=== PATIENT | female | born 1985 | race American Indian/Alaskan Native ===

== ENCOUNTER 2016-11-07 09:29 | Emergency (ER) | payer MEDICAID ==
[2016-11-07 09:41] VITALS: BP 150/102
--- NOTE | 2016-11-07 09:41 | Emergency Department Report ---
ED ENT HPI - General Chief complaint: Sore Throat Stated complaint: FLU LIKE SYMPTOMS Time Seen by Provider: 11/07/16 09:35 Source: patient Mode of arrival: Ambulatory Limitations: No Limitations - History of Present Illness Initial comments: PT states she had a sore throat on Monday. PT states she took [place] for the sore throat. PT states she does not have sore throat now but she can not talk. PT states she has a hx of seasonal allergies and she takes Claritin and a Nasal spray but she is out. PT denies sick contacts. MD complaint: sore throat -: Gradual, days(s) Severity scale (0 -10): 0 Consistency: constant Associated Symptoms: fever (subjective ). denies: cough, toothache, pain with swallowing, sore throat - Related Data Home Medications Medication Instructions Recorded Confirmed Last Taken Diltiazem HCl [Diltiazem ER] 240 mg PO DAILY 01/07/13 11/13/14 11/13/14 Mycophenolate [Cellcept] 1,000 mg PO BID 01/07/13 11/13/14 11/13/14 Pyridostigmine [place] (Nf) 180 mg PO QHS 01/07/13 11/13/14 11/13/14 [Mestinon (Nf)] Pyridostigmine [Mestinon] 60 mg PO Q6HR 01/07/13 11/13/14 11/13/14 Prednisone 10 mg PO QDAY 05/27/14 11/13/14 11/13/14 Telmisartan [Micardis] 80 mg PO QDAY 05/27/14 11/13/14 11/13/14 Previous Rx's Medication Instructions Recorded Last Taken Type ALBUTEROL Inhaler [ProAir HFA 2 puff IH QID PRN #1 inhalation 03/13/16 Unknown Rx Inhaler] Fluticasone [Flonase] 2 spray NS QDAY #1 bottle 11/07/16 Unknown Rx Loratadine [Claritin] 10 mg PO DAILY #30 tablet 11/07/16 Unknown Rx predniSONE [Deltasone] 40 mg PO QDAY 3 Days 11/07/16 Unknown Rx Allergies Allergy/AdvReac Type Severity Reaction Status Date / Time No Known Allergies Allergy Verified 02/24/16 20:48 ED Dental HPI - General Stated complaint: FLU LIKE SYMPTOMS Time Seen by Provider: 11/07/16 09:35 - Related Data Home Medications Medication Instructions Recorded Confirmed Last Taken Diltiazem HCl [Diltiazem ER] 240 mg PO DAILY 01/07/13 11/13/14 11/13/14 Mycophenolate [Cellcept] 1,000 mg PO BID 01/07/13 11/13/14 11/13/14 Pyridostigmine [place] (Nf) 180 mg PO QHS 01/07/13 11/13/14 11/13/14 [Mestinon (Nf)] Pyridostigmine [Mestinon] 60 mg PO Q6HR 01/07/13 11/13/14 11/13/14 Prednisone 10 mg PO QDAY 05/27/14 11/13/14 11/13/14 Telmisartan [Micardis] 80 mg PO QDAY 05/27/14 11/13/14 11/13/14 Previous Rx's Medication Instructions Recorded Last Taken Type ALBUTEROL Inhaler [ProAir HFA 2 puff IH QID PRN #1 inhalation 03/13/16 Unknown Rx Inhaler] Fluticasone [Flonase] 2 spray NS QDAY #1 bottle 11/07/16 Unknown Rx Loratadine [Claritin] 10 mg PO DAILY #30 tablet 11/07/16 Unknown Rx predniSONE [Deltasone] 40 mg PO QDAY 3 Days 11/07/16 Unknown Rx Allergies Allergy/AdvReac Type Severity Reaction Status Date / Time No Known Allergies Allergy Verified 02/24/16 20:48 ED Review of Systems ROS: Stated complaint: FLU LIKE SYMPTOMS Other details as noted in HPI Comment: All other systems reviewed and negative Constitutional: chills, fever (subjective ) ENT: denies: throat pain (resolved) Respiratory: denies: cough, shortness of breath, SOB with exertion, SOB at rest Gastrointestinal: denies: abdominal pain Genitourinary: denies: abnormal menses ED Past Medical Hx - Past Medical History Hx Hypertension: Yes Hx Heart Attack/AMI: No Hx Congestive Heart Failure: No Hx Diabetes: No Hx Deep Vein Thrombosis: No Hx Pulmonary Embolism: No Hx GERD: No Hx Liver Disease: No Hx Renal Disease: No Hx Sickle Cell Disease: No Hx Arthritis: No Hx Seizures: No Hx Kidney Stones: No Hx Asthma: Yes Hx COPD: No Hx Tuberculosis: No Hx Dementia: No Hx HIV: No Additional medical history: myastheia gravis - Surgical History Hx Coronary Stent: No Hx Open Heart Surgery: No Hx Pacemaker: No Hx Internal Defibrillator: No Hx Cholecystectomy: No Hx Appendectomy: No Hx Breast Surgery: No Additional Surgical History: Thyroid gland removed via open heart - Social History Smoking Status: Never Smoker Substance Use Type: None - Medications Home Medications: Home Medications Medication Instructions Recorded Confirmed Last Taken Type Diltiazem HCl [Diltiazem ER] 240 mg PO DAILY 01/07/13 11/13/14 11/13/14 History Mycophenolate [Cellcept] 1,000 mg PO BID 01/07/13 11/13/14 11/13/14 History Pyridostigmine [place] (Nf) 180 mg PO QHS 01/07/13 11/13/14 11/13/14 History [Mestinon (Nf)] Pyridostigmine [Mestinon] 60 mg PO Q6HR 01/07/13 11/13/14 11/13/14 History Prednisone 10 mg PO QDAY 05/27/14 11/13/14 11/13/14 History Telmisartan [Micardis] 80 mg PO QDAY 05/27/14 11/13/14 11/13/14 History ALBUTEROL Inhaler [ProAir HFA 2 puff IH QID PRN #1 inhalation 03/13/16 Unknown Rx Inhaler] Fluticasone [Flonase] 2 spray NS QDAY #1 bottle 11/07/16 Unknown Rx Loratadine [Claritin] 10 mg PO DAILY #30 tablet 11/07/16 Unknown Rx predniSONE [Deltasone] 40 mg PO QDAY 3 Days 11/07/16 Unknown Rx ED Physical Exam - General Limitations: No Limitations General appearance: alert - Head Head exam: Present: atraumatic, normocephalic, normal inspection - Eye Eye exam: Present: normal appearance, PERRL, EOMI. Absent: conjunctival injection - ENT ENT exam: Present: normal orophraynx, mucous membranes moist, TM's normal bilaterally, normal external ear exam, other (turbinates enlarged and boggy and ertyhematous. Clear post nasal drainage) - Expanded ENT Exam Expanded Mouth exam: Present: normal external inspection, other (horse voice). Absent: drooling, trismus, muffled voice - Neck Neck exam: Present: normal inspection, full ROM. Absent: tenderness, meningismus, lymphadenopathy, thyromegaly - Respiratory Respiratory exam: Present: normal lung sounds bilaterally. Absent: respiratory distress, wheezes, rales, rhonchi - Cardiovascular Cardiovascular Exam: Present: regular rate, normal rhythm, normal heart sounds - GI/Abdominal GI/Abdominal exam: Present: soft. Absent: tenderness - Extremities Exam Extremities exam: Present: normal inspection, full ROM - Back Exam Back exam: Present: normal inspection, full ROM. Absent: tenderness, CVA tenderness (R), CVA tenderness (L) - Neurological Exam Neurological exam: Present: alert, oriented X3, normal gait - Psychiatric Psychiatric exam: Present: normal affect, normal mood - Skin Skin exam: Present: warm, dry, intact, normal color ED Course Vital Signs 11/07/16 09:36 Temperature 98.4 F Pulse Rate 104 H Respiratory 20 Rate Blood Pressure 150/102 O2 Sat by Pulse 100 Oximetry - Reevaluation(s) Reevaluation #1: 11/07/16 09:43 PT aware of plan of care. PT has no questions at this time. - Pulse Oximetry Interpretation Digit-Finger Initial Pulse Oximetry Readin Actions Taken: none ED Medical Decision Making - Differential Diagnosis viral uri, laryngitis Critical Care Time: No Critical care attestation.: If time is entered above; I have spent that time in minutes in the direct care of this critically ill patient, excluding procedure time. ED Disposition Clinical Impression: Laryngitis Allergic rhinitis Qualifiers: Chronicity: acute Allergic rhinitis trigger: unspecified Allergic rhinitis seasonality: unspecified seasonality Qualified Code(s): J30.9 - Allergic rhinitis, unspecified Disposition: DC-01 TO HOME OR SELFCARE Is pt being admited?: No Does the pt Need Aspirin: No Condition: Stable Instructions: Laryngitis (ED), Allergies (ED) Additional Instructions: Recheck BP at follow up Take the Claritin at night, it might make you drowsy Prescriptions: Fluticasone [Flonase] 2 spray NS QDAY #1 bottle Loratadine [Claritin] 10 mg PO DAILY #30 tablet predniSONE [Deltasone] 40 mg PO QDAY 3 Days Referrals: MARILIA SCHWARTZ MD [Staff Physician] - 3-[address] [facility] [Outside] - 3-5 Days Time of Disposition: 09:54
== END 2016-11-07 10:17 | disposition home or self-care (01) ==
LOC: ED 09:29
DX: J04.0 Acute laryngitis (principal); J30.9 Allergic rhinitis, unspecified; I10 Essential (primary) hypertension; J45.909 Unspecified asthma, uncomplicated
CPT/HCPCS: 99282

== ENCOUNTER 2018-11-01 02:04 | Emergency (ER) | payer MEDICAID ==
[2018-11-01] MEDS ORDERED: ATIVAN ONE (02:32)
[2018-11-01] MEDS ORDERED: ATIVAN IV ONE (02:33)
--- NOTE | 2018-11-01 03:24 | Emergency Department Report ---
<MELY ESPINAL - Last Filed: 11/01/18 10:37> ED Altered Mental Status HPI - General Chief Complaint: Altered Mental Status Stated Complaint: DIFFICULTY IN BREATHING Time Seen by Provider: 11/01/18 02:21 - Related Data Home Medications Medication Instructions Recorded Confirmed Last Taken Diltiazem HCl [Diltiazem 24Hr ER] 240 mg PO DAILY 01/07/13 11/13/14 11/13/14 Mycophenolate [Cellcept] 1,000 mg PO BID 01/07/13 11/13/14 11/13/14 Pyridostigmine [place] (Nf) 180 mg PO QHS 01/07/13 11/13/14 11/13/14 [Mestinon (Nf)] Pyridostigmine [Mestinon] 60 mg PO Q6HR 01/07/13 11/13/14 11/13/14 Telmisartan [Micardis] 80 mg PO QDAY 05/27/14 11/13/14 11/13/14 predniSONE [Prednisone] 10 mg PO QDAY 05/27/14 11/13/14 11/13/14 Previous Rx's Medication Instructions Recorded Last Taken Type ALBUTEROL Inhaler (OR & NICU) 2 puff IH QID PRN #1 inhalation 03/13/16 Unknown Rx [ProAir HFA Inhaler] Fluticasone [Flonase] 2 spray NS QDAY #1 bottle 11/07/16 Unknown Rx Loratadine [Claritin] 10 mg PO DAILY #30 tablet 11/07/16 Unknown Rx predniSONE [Deltasone] 40 mg PO QDAY 3 Days tab 11/07/16 Unknown Rx Erythromycin [Erythromycin Ophth 1 applic OS QID #7 day 12/30/17 Unknown Rx Oint] Allergies Allergy/AdvReac Type Severity Reaction Status Date / Time No Known Allergies Allergy Verified 02/24/16 20:48 ED Past Medical Hx - Medications Home Medications: Home Medications Medication Instructions Recorded Confirmed Last Taken Type Diltiazem HCl [Diltiazem 24Hr ER] 240 mg PO DAILY 01/07/13 11/13/14 11/13/14 History Mycophenolate [Cellcept] 1,000 mg PO BID 01/07/13 11/13/14 11/13/14 History Pyridostigmine [place] (Nf) 180 mg PO QHS 0911/13/14 11/13/14 History [Mestinon (Nf)] Pyridostigmine [Mestinon] 60 mg PO Q6HR 01/07/13 11/13/14 11/13/14 History Telmisartan [Micardis] 80 mg PO QDAY 05/27/14 11/13/14 11/13/14 History predniSONE [Prednisone] 10 mg PO QDAY 05/27/14 11/13/14 11/13/14 History ALBUTEROL Inhaler (OR & NICU) 2 puff IH QID PRN #1 inhalation 03/13/16 Unknown Rx [ProAir HFA Inhaler] Fluticasone [Flonase] 2 spray NS QDAY #1 bottle 11/07/16 Unknown Rx Loratadine [Claritin] 10 mg PO DAILY #30 tablet 11/07/16 Unknown Rx predniSONE [Deltasone] 40 mg PO QDAY 3 Days tab 11/07/16 Unknown Rx Erythromycin [Erythromycin Ophth 1 applic OS QID #7 day 12/30/17 Unknown Rx Oint] - Lab Data Result diagrams: 11/01/18 02:56 11/01/18 02:56 - Medical Decision Making Discussed patient with Dr. Yancey at [facility] and the patient was accepted for transfer Up dated family on plan of care ED Disposition Clinical Impression: Seizure, Myasthenia gravis, Respiratory failure Disposition: [id number] Condition: [facility] - 3-5 Days <MONICA ALLRED - Last Filed: 11/01/18 22:27> ED Altered Mental Status HPI - General Source: family Mode of arrival: Ambulatory Limitations: Altered Mental Status - History of Present Illness Initial Comments: 33-year-old female with history of myasthenia gravis, HTN presents to ED with altered mental status. states patient had an MRI of the brain done earlier today at [facility]. states this was to evaluate some eye abnormalities that the patient has been having. states she was unable to tolerate the MRI, so required sedation for it. says patient seemed fine following the MRI. States later in the evening patient began to complain of feeling generally weak, unable to move, so decided to bring patient to the ER. states he had to assist patient in sitting up while she was in the car, he states she also reported that she felt somewhat short of breath. Upon arrival in the ER, patient became altered and somewhat unresponsive. Patient was clammy, diaphoretic, and had urinary incontinence. denies any obvious seizure-like activity/ tonic-clinic shaking. Denies history of seizures. Initially upon entering the room, patient seemed to have a blank stare, and was breathing heavily, not responding to any questions. Patient then began speaking and continuously saying prayers over and over again, and telling her that she left him, apologizing for not being a better mother. At this time patient was anxious and moving all extremities despite efforts in trying to calm her down. Patient not following commands or answering any questions. MD Complaint: altered mental status, weakness -: This evening Severity: severe Consistency of Symptoms: constant Context: unknown Associated Symptoms: shortness of breath, weakness ED Review of Systems ROS: Stated complaint: DIFFICULTY IN BREATHING Other details as noted in HPI Comment: Unobtainable due to pts medical conditions Constitutional: weakness Respiratory: shortness of breath Cardiovascular: denies: chest pain ED Past Medical Hx - Past Medical History Hx Hypertension: Yes Hx Heart Attack/AMI: No Hx Congestive Heart Failure: No Hx Diabetes: No Hx Deep Vein Thrombosis: No Hx Pulmonary Embolism: No Hx GERD: No Hx Liver Disease: No Hx Renal Disease: No Hx Sickle Cell Disease: No Hx Arthritis: No Hx Seizures: No Hx Kidney Stones: No Hx Asthma: Yes Hx COPD: No Hx Tuberculosis: No Hx Dementia: No Hx HIV: No Additional medical history: myastheia gravis - Surgical History Hx Coronary Stent: No Hx Open Heart Surgery: No Hx Pacemaker: No Hx Internal Defibrillator: No Hx Cholecystectomy: No Hx Appendectomy: No Hx Breast Surgery: No Additional Surgical History: Thyroid gland removed via open heart - Social History Smoking Status: Never Smoker Substance Use Type: None ED Physical Exam - General Limitations: Altered Mental Status General appearance: alert, anxious, obese - Head Head exam: Present: atraumatic, normocephalic - Eye Eye exam: Present: normal appearance, PERRL, EOMI - ENT ENT exam: Present: mucous membranes moist - Neck Neck exam: Present: normal inspection - Respiratory Respiratory exam: Present: normal lung sounds bilaterally, other (tachypneic) - Cardiovascular Cardiovascular Exam: Present: normal rhythm, tachycardia - GI/Abdominal GI/Abdominal exam: Present: soft. Absent: distended, tenderness - Extremities Exam Extremities exam: Present: normal inspection - Neurological Exam Neurological exam: Present: alert, altered, other (moving all 4 extremities; not following commands; speech is clear) - Psychiatric Psychiatric exam: Present: agitated, anxious - Skin Skin exam: Present: warm, intact, normal color, diaphoretic. Absent: rash ED Course Vital Signs 11/01/18 11/01/18 11/01/18 02:16 02:33 02:47 Temperature 98.4 F Pulse Rate 124 H 160 H Respiratory 35 H 38 H Rate Blood Pressure O2 Sat by Pulse 34 L 84 98 Oximetry 11/01/18 11/01/18 11/01/18 03:00 04:00 04:14 Temperature Pulse Rate 116 H 115 H 113 H Respiratory 23 24 22 Rate Blood Pressure 209/114 209/114 O2 Sat by Pulse 100 100 100 Oximetry 11/01/18 11/01/18 11/01/18 04:56 05:00 05:06 Temperature Pulse Rate 118 H 118 H Respiratory 22 19 8 L Rate Blood Pressure 209/114 209/114 209/114 O2 Sat by Pulse 90 91 90 Oximetry 11/01/18 11/01/18 11/01/18 05:10 05:16 05:20 Temperature Pulse Rate 122 H 110 H Respiratory 19 20 24 Rate Blood Pressure 209/114 209/114 159/115 O2 Sat by Pulse 95 96 97 Oximetry 11/01/18 11/01/18 11/01/18 05:26 05:30 05:36 Temperature Pulse Rate 108 H 114 H Respiratory 26 H Rate Blood Pressure 159/115 159/115 165/105 O2 Sat by Pulse 98 100 97 Oximetry 11/01/18 11/01/18 11/01/18 05:42 05:45 05:51 Temperature Pulse Rate 112 H 108 H 129 H Respiratory Rate Blood Pressure 209/114 166/105 166/105 O2 Sat by Pulse 98 91 98 Oximetry 11/01/18 11/01/18 11/01/18 05:55 06:00 06:05 Temperature Pulse Rate 130 H 121 H 118 H Respiratory Rate Blood Pressure 166/105 163/123 165/105 O2 Sat by Pulse 92 90 87 Oximetry 07/11/19 07/11/19 07/11/19 06:11 06:15 06:21 Temperature Pulse Rate 118 H 130 H 127 H Respiratory Rate Blood Pressure 165/105 174/129 174/129 O2 Sat by Pulse 86 91 96 Oximetry 11/01/18 11/01/18 11/01/18 06:25 06:31 06:35 Temperature Pulse Rate 131 H 122 H 132 H Respiratory Rate Blood Pressure 174/129 182/125 163/123 O2 Sat by Pulse 96 97 95 Oximetry 11/01/18 11/01/18 11/01/18 06:41 06:45 06:51 Temperature Pulse Rate 124 H 118 H 109 H Respiratory Rate Blood Pressure 163/123 178/113 178/113 O2 Sat by Pulse 98 100 99 Oximetry 11/01/18 11/01/18 11/01/18 06:55 07:01 07:05 Temperature Pulse Rate 113 H 116 H 117 H Respiratory Rate Blood Pressure 178/113 167/105 182/125 O2 Sat by Pulse 100 100 99 Oximetry 11/01/18 11/01/18 11/01/18 07:11 07:15 07:21 Temperature Pulse Rate 114 H 124 H 166 H Respiratory Rate Blood Pressure 182/125 176/131 176/131 O2 Sat by Pulse 100 100 97 Oximetry 11/01/18 11/01/18 11/01/18 07:25 07:31 07:35 Temperature Pulse Rate 162 H 168 H 162 H Respiratory Rate Blood Pressure 176/131 176/131 176/131 O2 Sat by Pulse 92 98 97 Oximetry 11/01/18 11/01/18 11/01/18 07:41 07:45 07:51 Temperature Pulse Rate 162 H 176 H 181 H Respiratory Rate Blood Pressure 176/131 117/88 117/88 O2 Sat by Pulse 100 99 98 Oximetry 11/01/18 11/01/18 11/01/18 07:55 08:01 08:05 Temperature Pulse Rate 178 H 163 H 152 H Respiratory Rate Blood Pressure 117/88 195/142 117/88 O2 Sat by Pulse 98 97 98 Oximetry 11/01/18 11/01/18 11/01/18 08:11 08:15 08:21 Temperature Pulse Rate 177 H 177 H 176 H Respiratory Rate Blood Pressure 185/134 185/134 229/160 O2 Sat by Pulse 92 93 92 Oximetry 11/01/18 11/01/18 11/01/18 08:25 08:31 08:35 Temperature Pulse Rate 176 H 171 H 163 H Respiratory Rate Blood Pressure 229/160 214/149 185/134 O2 Sat by Pulse 89 91 Oximetry 11/01/18 11/01/18 11/01/18 08:41 08:45 08:51 Temperature Pulse Rate 162 H 160 H 160 H Respiratory Rate Blood Pressure 231/162 227/157 224/155 O2 Sat by Pulse 89 88 Oximetry 11/01/18 11/01/18 11/01/18 08:55 09:01 09:05 Temperature Pulse Rate 160 H 162 H 161 H Respiratory Rate Blood Pressure 224/156 218/154 218/149 O2 Sat by Pulse 88 Oximetry 11/01/18 11/01/18 11/01/18 09:10 09:15 09:20 Temperature Pulse Rate 162 H 161 H 157 H Respiratory Rate Blood Pressure 218/149 226/155 218/149 O2 Sat by Pulse 91 90 93 Oximetry 11/01/18 11/01/18 11/01/18 09:25 09:31 09:35 Temperature Pulse Rate 160 H 161 H 168 H Respiratory Rate Blood Pressure 210/146 210/142 210/142 O2 Sat by Pulse 90 89 Oximetry 11/01/18 11/01/18 11/01/18 09:41 09:45 09:51 Temperature Pulse Rate 164 H 163 H 164 H Respiratory Rate Blood Pressure 180/133 180/133 193/136 O2 Sat by Pulse 90 94 95 Oximetry 11/01/18 11/01/18 11/01/18 09:55 10:01 10:05 Temperature Pulse Rate 165 H 167 H 167 H Respiratory Rate Blood Pressure 193/136 199/136 199/136 O2 Sat by Pulse 95 93 92 Oximetry 11/01/18 11/01/18 11/01/18 10:11 10:15 10:20 Temperature Pulse Rate 167 H 167 H 167 H Respiratory Rate Blood Pressure 187/121 187/121 181/115 O2 Sat by Pulse 93 93 94 Oximetry 11/01/18 11/01/18 11/01/18 10:25 10:31 10:35 Temperature Pulse Rate 169 H 170 H 169 H Respiratory Rate Blood Pressure 177/121 180/107 180/107 O2 Sat by Pulse 94 94 94 Oximetry 11/01/18 11/01/18 11/01/18 10:41 10:45 10:51 Temperature Pulse Rate 171 H 168 H 167 H Respiratory Rate Blood Pressure 178/116 178/116 163/104 O2 Sat by Pulse 97 96 97 Oximetry 11/01/18 11/01/18 11/01/18 10:55 11:01 11:05 Temperature Pulse Rate 165 H 158 H 166 H Respiratory Rate Blood Pressure 163/104 181/115 185/123 O2 Sat by Pulse 97 95 96 Oximetry 11/01/18 11/01/18 11/01/18 11:11 11:15 11:21 Temperature Pulse Rate 165 H 156 H 154 H Respiratory Rate Blood Pressure 164/110 164/110 164/110 O2 Sat by Pulse 95 94 96 Oximetry 11/01/18 11/01/18 11/01/18 11:25 11:31 11:35 Temperature Pulse Rate 152 H 152 H 149 H Respiratory Rate Blood Pressure 126/53 126/55 126/55 O2 Sat by Pulse 94 98 96 Oximetry 11/01/18 11/01/18 11/01/18 11:41 11:45 11:51 Temperature Pulse Rate 149 H 149 H 149 H Respiratory Rate Blood Pressure 91/60 104/53 99/39 O2 Sat by Pulse 81 L 95 97 Oximetry 11/01/18 11/01/18 11/01/18 11:55 12:00 12:01 Temperature Pulse Rate 146 H 146 H 147 H Respiratory Rate Blood Pressure 115/46 121/86 95/36 O2 Sat by Pulse 97 96 Oximetry 11/01/18 11/01/18 11/01/18 12:05 12:11 12:15 Temperature Pulse Rate 152 H 153 H 159 H Respiratory Rate Blood Pressure 121/86 178/125 178/125 O2 Sat by Pulse 97 96 96 Oximetry 11/01/18 11/01/18 11/01/18 12:21 12:25 12:31 Temperature Pulse Rate 160 H 160 H 161 H Respiratory Rate Blood Pressure 178/125 194/138 191/150 O2 Sat by Pulse 95 96 96 Oximetry 11/01/18 11/01/18 11/01/18 12:35 12:41 12:45 Temperature Pulse Rate 157 H 155 H 163 H Respiratory Rate Blood Pressure 191/150 191/150 191/150 O2 Sat by Pulse 95 95 96 Oximetry 11/01/18 11/01/18 11/01/18 12:51 12:55 13:00 Temperature Pulse Rate 169 H 160 H 157 H Respiratory Rate Blood Pressure 185/123 185/123 128/84 O2 Sat by Pulse 96 96 96 Oximetry 11/01/18 11/01/18 11/01/18 13:05 13:11 13:15 Temperature Pulse Rate 153 H 150 H 147 H Respiratory Rate Blood Pressure 114/60 95/36 72/33 O2 Sat by Pulse 96 96 96 Oximetry 11/01/18 11/01/18 11/01/18 13:20 13:25 13:30 Temperature Pulse Rate 146 H 145 H 146 H Respiratory Rate Blood Pressure 65/35 67/31 79/33 O2 Sat by Pulse 95 96 96 Oximetry 11/01/18 11/01/18 11/01/18 13:35 13:40 13:45 Temperature Pulse Rate 142 H 138 H 135 H Respiratory Rate Blood Pressure 91/35 81/36 80/31 O2 Sat by Pulse 97 98 99 Oximetry 11/01/18 11/01/18 11/01/18 13:50 13:55 14:00 Temperature Pulse Rate 136 H 132 H 130 H Respiratory Rate Blood Pressure 81/49 84/49 82/58 O2 Sat by Pulse 100 100 100 Oximetry 11/01/18 11/01/18 11/01/18 14:05 14:10 14:15 Temperature Pulse Rate 132 H 136 H 138 H Respiratory Rate Blood Pressure 101/68 108/53 108/53 O2 Sat by Pulse 100 98 100 Oximetry 11/01/18 11/01/18 11/01/18 14:21 14:25 14:31 Temperature Pulse Rate 146 H 148 H 148 H Respiratory Rate Blood Pressure 112/87 162/114 162/114 O2 Sat by Pulse 100 98 98 Oximetry 11/01/18 11/01/18 11/01/18 14:35 14:41 14:45 Temperature Pulse Rate 152 H 150 H 147 H Respiratory Rate Blood Pressure 186/117 175/112 177/108 O2 Sat by Pulse 98 98 98 Oximetry 11/01/18 11/01/18 11/01/18 14:51 14:55 15:01 Temperature Pulse Rate 149 H 146 H 143 H Respiratory Rate Blood Pressure 169/112 169/112 148/91 O2 Sat by Pulse 98 97 98 Oximetry 11/01/18 11/01/18 11/01/18 15:05 15:11 15:15 Temperature Pulse Rate 145 H 144 H 143 H Respiratory Rate Blood Pressure 164/104 141/98 145/100 O2 Sat by Pulse 97 97 97 Oximetry 11/01/18 11/01/18 11/01/18 15:21 15:25 15:31 Temperature Pulse Rate 144 H 146 H 147 H Respiratory Rate Blood Pressure 151/102 158/96 162/98 O2 Sat by Pulse 99 100 98 Oximetry 11/01/18 11/01/18 11/01/18 15:35 15:41 15:45 Temperature Pulse Rate 147 H 149 H 149 H Respiratory Rate Blood Pressure 168/107 173/105 166/109 O2 Sat by Pulse 98 98 99 Oximetry 11/01/18 11/01/18 11/01/18 15:50 15:55 16:00 Temperature Pulse Rate 150 H 149 H 151 H Respiratory Rate Blood Pressure 158/118 165/110 165/112 O2 Sat by Pulse 99 100 98 Oximetry 11/01/18 11/01/18 11/01/18 16:05 16:11 16:15 Temperature Pulse Rate 152 H 156 H 158 H Respiratory Rate Blood Pressure 165/112 140/121 140/121 O2 Sat by Pulse 98 97 98 Oximetry 11/01/18 11/01/18 11/01/18 16:20 16:25 16:31 Temperature Pulse Rate 157 H 156 H 152 H Respiratory Rate Blood Pressure 155/134 173/131 192/117 O2 Sat by Pulse 99 99 98 Oximetry 11/01/18 11/01/18 11/01/18 16:35 16:41 16:45 Temperature Pulse Rate 156 H 159 H 158 H Respiratory Rate Blood Pressure 192/117 184/124 184/124 O2 Sat by Pulse 98 99 99 Oximetry 11/01/18 11/01/18 11/01/18 16:51 16:55 17:01 Temperature Pulse Rate 161 H 157 H 158 H Respiratory Rate Blood Pressure 184/130 184/130 189/124 O2 Sat by Pulse 99 98 98 Oximetry 11/01/18 11/01/18 11/01/18 17:05 17:11 17:15 Temperature Pulse Rate 157 H 162 H 157 H Respiratory Rate Blood Pressure 129/104 129/104 184/126 O2 Sat by Pulse 98 98 99 Oximetry 11/01/18 11/01/18 11/01/18 17:21 17:25 17:31 Temperature Pulse Rate 160 H 158 H 159 H Respiratory Rate Blood Pressure 190/124 190/124 152/131 O2 Sat by Pulse 100 99 98 Oximetry 11/01/18 11/01/18 11/01/18 17:35 17:41 17:45 Temperature Pulse Rate 159 H 160 H 159 H Respiratory Rate Blood Pressure 152/131 188/120 188/120 O2 Sat by Pulse 99 99 99 Oximetry 11/01/18 11/01/18 11/01/18 17:51 17:55 18:01 Temperature Pulse Rate 158 H 158 H 160 H Respiratory Rate Blood Pressure 146/132 180/106 152/104 O2 Sat by Pulse 99 99 100 Oximetry 11/01/18 11/01/18 11/01/18 18:05 18:11 18:15 Temperature Pulse Rate 162 H 160 H 157 H Respiratory Rate Blood Pressure 152/104 175/119 175/119 O2 Sat by Pulse 100 99 99 Oximetry 11/01/18 11/01/18 11/01/18 18:21 18:25 18:31 Temperature Pulse Rate 153 H 151 H 150 H Respiratory Rate Blood Pressure 188/116 188/116 196/126 O2 Sat by Pulse 99 97 98 Oximetry 11/01/18 11/01/18 11/01/18 18:35 18:41 18:45 Temperature Pulse Rate 150 H 154 H 157 H Respiratory Rate Blood Pressure 196/126 188/131 175/109 O2 Sat by Pulse 97 98 97 Oximetry 11/01/18 11/01/18 11/01/18 18:51 18:55 19:01 Temperature Pulse Rate 154 H 156 H 155 H Respiratory Rate Blood Pressure 170/107 170/107 142/98 O2 Sat by Pulse 97 96 96 Oximetry 11/01/18 11/01/18 11/01/18 19:05 19:11 19:15 Temperature Pulse Rate 154 H 154 H 154 H Respiratory Rate Blood Pressure 142/98 159/87 175/109 O2 Sat by Pulse 96 96 97 Oximetry 11/01/18 11/01/18 11/01/18 19:21 19:25 19:31 Temperature Pulse Rate 155 H 156 H 157 H Respiratory Rate Blood Pressure 138/95 138/95 150/76 O2 Sat by Pulse 95 95 97 Oximetry 11/01/18 11/01/18 11/01/18 19:35 19:41 19:45 Temperature Pulse Rate 155 H 155 H 156 H Respiratory Rate Blood Pressure 150/76 164/136 138/95 O2 Sat by Pulse 96 97 99 Oximetry 11/01/18 11/01/18 11/01/18 19:51 19:55 20:01 Temperature Pulse Rate 159 H 159 H 156 H Respiratory Rate Blood Pressure 154/99 154/99 145/83 O2 Sat by Pulse 98 97 98 Oximetry 11/01/18 11/01/18 11/01/18 20:05 20:11 20:15 Temperature Pulse Rate 156 H 157 H 156 H Respiratory Rate Blood Pressure 145/83 161/93 161/93 O2 Sat by Pulse 97 97 98 Oximetry 11/01/18 11/01/18 11/01/18 20:20 20:21 20:25 Temperature Pulse Rate 157 H 158 H 160 H Respiratory Rate Blood Pressure 161/93 161/98 169/91 O2 Sat by Pulse 98 99 97 Oximetry 11/01/18 11/01/18 11/01/18 20:31 20:35 20:41 Temperature Pulse Rate 159 H 161 H 160 H Respiratory Rate Blood Pressure 169/91 155/94 153/95 O2 Sat by Pulse 98 98 98 Oximetry 11/01/18 11/01/18 11/01/18 20:45 20:51 20:55 Temperature Pulse Rate 159 H 158 H 159 H Respiratory Rate Blood Pressure 153/95 160/90 160/90 O2 Sat by Pulse 96 97 99 Oximetry 11/01/18 11/01/18 11/01/18 21:00 21:05 21:11 Temperature Pulse Rate 159 H 159 H 163 H Respiratory Rate Blood Pressure 147/86 143/105 157/89 O2 Sat by Pulse 99 99 99 Oximetry 11/01/18 21:15 Temperature Pulse Rate 160 H Respiratory Rate Blood Pressure 147/86 O2 Sat by Pulse 99 Oximetry - Reevaluation(s) Reevaluation #1: 11/01/18 04:18 Pt much improved from initial presentation. She is answering questions appropriately. Currently A&O x 3. Strength 4/5 in all 4 extremities. Pt does state that she feels as if she is having some neck weakness, and generalized weakness. States this does feel like previous MG exacerbations and has received IVIG in the past. Neurologist at [facility] is Dr Kirby. Reevaluation #2: 11/01/18 06:43 Pt taken off of BiPAP. Repeat ABG on room air shows no CO2 retention. Pt asleep, but easily arousable and answers questions appropriately. states pt currently at her baseline. Pt states she feels ok without BiPAP. Pt has been tachycardic in the 110s. Takes diltiazem. Pt reports that her heart rate is usually elevated. Will contact [facility] again with current ABG results on room air. pH 7.43 pCO2 35 pO2 64 O2 sats 93 Reevaluation #3: 11/01/18 07:45 Spoke w/ [facility] neurologist, Dr Jeff (due to change of shift Dr Coffey has left). Dr Jeff requested NIV and FVC values. After getting off of the phone with her, I was speaking to the respiratory therapist about this patient. Pt's nurse came to me and stated that pt was anxious again and complaining of having trouble breathing. I evaluated pt, she told me that she has been intubated before due to MG. So, decision was made to intubate. - Consultations Consultation #1: 11/01/18 04:16 Spoke w/ teleneurologist, Dr Chadwick. States pt's presentation could possibly be MG exacerbation. If pt has received IVIG before, may need again. Recommends contacting [facility] since that is where her neurologists are located. Consultation #2: 11/01/18 05:[address] Coffey, [facility] neurologist. Does not believe that this is an exacerbation of MG, states sounds more like a seizure. Does not recommend any antiepileptics at this time. Will accept pt, but wants to obtain repeat ABG w/ pt off of BiPAP. - Intubation Time Out Performed: Yes Sedative: Etomidate Mg Given: 20 Paralytic: Rocuronium Mg Given: 50 Laryngoscope: [place] Size: 4 ET Tube Size: 7.5 Tube Secured Depth (cm): 24 Tube Secured Location: teeth Tube Placement Confirmation: visualized tube passing t, equal breath sounds bilat, no breath sounds over epi, confirmation by capnometr Patient Tolerated Procedure: well Intubation Complications: none - Lab Data Result diagrams: 11/01/18 02:56 11/01/18 02:56 Lab Results 11/01/18 11/01/18 11/01/18 Range/Units 02:56 02:56 02:56 WBC 10.4 (4.5-11.0) K/mm3 RBC 4.89 (3.65-5.03) M/mm3 Hgb 12.9 (10.1-14.3) gm/dl Hct 39.9 (30.3-42.9) % MCV 82 (79-97) fl MCH 27 L (28-32) pg MCHC 32 (30-34) % RDW 14.9 (13.2-15.2) % Plt Count 297 (140-440) K/mm3 Add Manual Diff Complete Total Counted 100 Seg Neuts % (Manual) 93.0 H (40.0-70.0) % Band Neutrophils % 0 % Lymphocytes % (Manual) 6.0 L (13.4-35.0) % Reactive Lymphs % (Man) 0 % Monocytes % (Manual) 1.0 (0.0-7.3) % Eosinophils % (Manual) 0 (0.0-4.3) % Basophils % (Manual) 0 (0.0-1.8) % Metamyelocytes % 0 % Myelocytes % 0 % Promyelocytes % 0 % Blast Cells % 0 % Nucleated RBC % Not Reportable Seg Neutrophils # Man 9.7 H (1.8-7.7) K/mm3 Band Neutrophils # 0.0 K/mm3 Lymphocytes # (Manual) 0.6 L (1.2-5.4) K/mm3 Abs React Lymphs (Man) 0.0 K/mm3 Monocytes # (Manual) 0.1 (0.0-0.8) K/mm3 Eosinophils # (Manual) 0.0 (0.0-0.4) K/mm3 Basophils # (Manual) 0.0 (0.0-0.1) K/mm3 Metamyelocytes # 0.0 K/mm3 Myelocytes # 0.0 K/mm3 Promyelocytes # 0.0 K/mm3 Blast Cells # 0.0 K/mm3 WBC Morphology Not Reportable Hypersegmented Neuts Not Reportable Hyposegmented Neuts Not Reportable Hypogranular Neuts Not Reportable Smudge Cells Not Reportable Toxic Granulation Not Reportable Toxic Vacuolation Not Reportable Dohle Bodies Not Reportable Pelger-Huet Anomaly Not Reportable Brandyn Rods Not Reportable Platelet Estimate Consistent w auto Clumped Platelets Few Plt Clumps, EDTA Not Reportable Large Platelets Not Reportable Giant Platelets Not Reportable Platelet Satelliting Not Reportable Plt Morphology Comment Not Reportable RBC Morphology Normal Dimorphic RBCs Not Reportable Polychromasia Not Reportable Hypochromasia Not Reportable Poikilocytosis Not Reportable Anisocytosis Not Reportable Microcytosis Not Reportable Macrocytosis Not Reportable Spherocytes Not Reportable Pappenheimer Bodies Not Reportable Sickle Cells Not Reportable Target Cells Not Reportable Tear Drop Cells Not Reportable Ovalocytes Not Reportable Helmet Cells Not Reportable Hilton-[place] Bodies Not Reportable Frankewing Rings Not Reportable Rolfe Cells Not Reportable Bite Cells Not Reportable Crenated Cell Not Reportable Elliptocytes Not Reportable Acanthocytes (Spur) Not Reportable Rouleaux Not Reportable Hemoglobin C Crystals Not Reportable Schistocytes Not Reportable Malaria parasites Not Reportable Kit Bodies Not Reportable Hem Pathologist Commnt No PT 13.1 (12.2-14.9) Sec. INR 1.02 (0.87-1.13) APTT TNR D-Dimer (0-234) ng/mlDDU POC ABG pH (7.35-7.45) POC ABG pCO2 (35-45) POC ABG pO2 (80-105) POC ABG HCO3 (22-26 mml/L) POC ABG Total CO2 (23-27mmol/L) POC ABG O2 Sat POC ABG Base Excess ((-2) - (+3)mmol/L) FiO2 % Sodium (137-145) mmol/L Potassium (3.6-5.0) mmol/L Chloride (98-107) mmol/L Carbon Dioxide (22-30) mmol/L Anion Gap mmol/L BUN (7-17) mg/dL Creatinine (0.7-1.2) mg/dL Estimated GFR ml/min BUN/Creatinine Ratio % Glucose (65-100) mg/dL Calcium (8.4-10.2) mg/dL Total Bilirubin (0.1-1.2) mg/dL AST (5-40) units/L ALT (7-56) units/L Alkaline Phosphatase (35-129) units/L Troponin T < 0.010 (0.00-0.029) ng/mL NT-Pro-B Natriuret Pep (0-450) pg/mL Total Protein (6.3-8.2) g/dL Albumin (3.9-5) g/dL Albumin/Globulin Ratio % HCG, Qual (Negative) Urine Color (Yellow) Urine Turbidity (Clear) Urine pH (5.0-7.0) Ur Specific [place] (1.003-1.030) Urine Protein (Negative) mg/dL Urine Glucose (UA) (Negative) mg/dL Urine Ketones (Negative) mg/dL Urine Blood (Negative) Urine Nitrite (Negative) Urine Bilirubin (Negative) Urine Urobilinogen (<2.0) mg/dL Ur Leukocyte Esterase (Negative) Urine WBC (Auto) (0.0-6.0) /HPF Urine RBC (Auto) (0.0-6.0) /HPF U Epithel Cells (Auto) (0-13.0) /HPF Salicylates (2.8-20.0) mg/dL Urine Opiates Screen Urine Methadone Screen Acetaminophen (10.0-30.0) ug/mL Ur Barbiturates Screen Ur Phencyclidine Scrn Ur Amphetamines Screen U Benzodiazepines Scrn Urine Cocaine Screen U Marijuana (THC) Screen Drugs of Abuse Note Plasma/Serum Alcohol (0-0.07) % 11/01/18 11/01/18 11/01/18 Range/Units 02:56 02:56 02:56 WBC (4.5-11.0) K/mm3 RBC (3.65-5.03) M/mm3 Hgb (10.1-14.3) gm/dl Hct (30.3-42.9) % MCV (79-97) fl MCH (28-32) pg MCHC (30-34) % RDW (13.2-15.2) % Plt Count (140-440) K/mm3 Add Manual Diff Total Counted Seg Neuts % (Manual) (40.0-70.0) % Band Neutrophils % % Lymphocytes % (Manual) (13.4-35.0) % Reactive Lymphs % (Man) % Monocytes % (Manual) (0.0-7.3) % Eosinophils % (Manual) (0.0-4.3) % Basophils % (Manual) (0.0-1.8) % Metamyelocytes % % Myelocytes % % Promyelocytes % % Blast Cells % % Nucleated RBC % Seg Neutrophils # Man (1.8-7.7) K/mm3 Band Neutrophils # K/mm3 Lymphocytes # (Manual) (1.2-5.4) K/mm3 Abs React Lymphs (Man) K/mm3 Monocytes # (Manual) (0.0-0.8) K/mm3 Eosinophils # (Manual) (0.0-0.4) K/mm3 Basophils # (Manual) (0.0-0.1) K/mm3 Metamyelocytes # K/mm3 Myelocytes # K/mm3 Promyelocytes # K/mm3 Blast Cells # K/mm3 WBC Morphology Hypersegmented Neuts Hyposegmented Neuts Hypogranular Neuts Smudge Cells Toxic Granulation Toxic Vacuolation Dohle Bodies Pelger-Huet Anomaly Brandyn Rods Platelet Estimate Clumped Platelets Plt Clumps, EDTA Large Platelets Giant Platelets Platelet Satelliting Plt Morphology Comment RBC Morphology Dimorphic RBCs Polychromasia Hypochromasia Poikilocytosis Anisocytosis Microcytosis Macrocytosis Spherocytes Pappenheimer Bodies Sickle Cells Target Cells Tear Drop Cells Ovalocytes Helmet Cells [place] Bodies Frankewing Rings Rolfe Cells Bite Cells Crenated Cell Elliptocytes Acanthocytes (Spur) Rouleaux Hemoglobin C Crystals Schistocytes Malaria parasites Kit Bodies Hem Pathologist Commnt PT (12.2-14.9) Sec. INR (0.87-1.13) APTT D-Dimer (0-234) ng/mlDDU POC ABG pH (7.35-7.45) POC ABG pCO2 (35-45) POC ABG pO2 (80-105) POC ABG HCO3 (22-26 mml/L) POC ABG Total CO2 (23-27mmol/L) POC ABG O2 Sat POC ABG Base Excess ((-2) - (+3)mmol/L) FiO2 % Sodium 140 (137-145) mmol/L Potassium 3.2 L (3.6-5.0) mmol/L Chloride 103.0 (98-107) mmol/L Carbon Dioxide 18 L (22-30) mmol/L Anion Gap 22 mmol/L BUN 8 (7-17) mg/dL Creatinine 0.8 (0.7-1.2) mg/dL Estimated GFR > 60 ml/min BUN/Creatinine Ratio 10 % Glucose 311 H (65-100) mg/dL Calcium 8.6 (8.4-10.2) mg/dL Total Bilirubin 0.50 (0.1-1.2) mg/dL AST 22 (5-40) units/L ALT 20 (7-56) units/L Alkaline Phosphatase 67 (35-129) units/L Troponin T (0.00-0.029) ng/mL NT-Pro-B Natriuret Pep 282.9 (0-450) pg/mL Total Protein 7.4 (6.3-8.2) g/dL Albumin 4.0 (3.9-5) g/dL Albumin/Globulin Ratio 1.2 % HCG, Qual (Negative) Urine Color (Yellow) Urine Turbidity (Clear) Urine pH (5.0-7.0) Ur Specific [place] (1.003-1.030) Urine Protein (Negative) mg/dL Urine Glucose (UA) (Negative) mg/dL Urine Ketones (Negative) mg/dL Urine Blood (Negative) Urine Nitrite (Negative) Urine Bilirubin (Negative) Urine Urobilinogen (<2.0) mg/dL Ur Leukocyte Esterase (Negative) Urine WBC (Auto) (0.0-6.0) /HPF Urine RBC (Auto) (0.0-6.0) /HPF U Epithel Cells (Auto) (0-13.0) /HPF Salicylates < 0.3 L (2.8-20.0) mg/dL Urine Opiates Screen Urine Methadone Screen Acetaminophen < 5.0 L (10.0-30.0) ug/mL Ur Barbiturates Screen Ur Phencyclidine Scrn Ur Amphetamines Screen U Benzodiazepines Scrn Urine Cocaine Screen U Marijuana (THC) Screen Drugs of Abuse Note Plasma/Serum Alcohol (0-0.07) % 11/01/18 11/01/18 11/01/18 Range/Units 02:56 02:56 03:49 WBC (4.5-11.0) K/mm3 RBC (3.65-5.03) M/mm3 Hgb (10.1-14.3) gm/dl Hct (30.3-42.9) % MCV (79-97) fl MCH (28-32) pg MCHC (30-34) % RDW (13.2-15.2) % Plt Count (140-440) K/mm3 Add Manual Diff Total Counted Seg Neuts % (Manual) (40.0-70.0) % Band Neutrophils % % Lymphocytes % (Manual) (13.4-35.0) % Reactive Lymphs % (Man) % Monocytes % (Manual) (0.0-7.3) % Eosinophils % (Manual) (0.0-4.3) % Basophils % (Manual) (0.0-1.8) % Metamyelocytes % % Myelocytes % % Promyelocytes % % Blast Cells % % Nucleated RBC % Seg Neutrophils # Man (1.8-7.7) K/mm3 Band Neutrophils # K/mm3 Lymphocytes # (Manual) (1.2-5.4) K/mm3 Abs React Lymphs (Man) K/mm3 Monocytes # (Manual) (0.0-0.8) K/mm3 Eosinophils # (Manual) (0.0-0.4) K/mm3 Basophils # (Manual) (0.0-0.1) K/mm3 Metamyelocytes # K/mm3 Myelocytes # K/mm3 Promyelocytes # K/mm3 Blast Cells # K/mm3 WBC Morphology Hypersegmented Neuts Hyposegmented Neuts Hypogranular Neuts Smudge Cells Toxic Granulation Toxic Vacuolation Dohle Bodies Pelger-Huet Anomaly Brandyn Rods Platelet Estimate Clumped Platelets Plt Clumps, EDTA Large Platelets Giant Platelets Platelet Satelliting Plt Morphology Comment RBC Morphology Dimorphic RBCs Polychromasia Hypochromasia Poikilocytosis Anisocytosis Microcytosis Macrocytosis Spherocytes Pappenheimer Bodies Sickle Cells Target Cells Tear Drop Cells Ovalocytes Helmet Cells [place] Bodies Frankewing Rings Rolfe Cells Bite Cells Crenated Cell Elliptocytes Acanthocytes (Spur) Rouleaux Hemoglobin C Crystals Schistocytes Malaria parasites Kit Bodies Hem Pathologist Commnt PT (12.2-14.9) Sec. INR (0.87-1.13) APTT D-Dimer (0-234) ng/mlDDU POC ABG pH 7.347 L (7.35-7.45) POC ABG pCO2 45.0 (35-45) POC ABG pO2 285 H (80-105) POC ABG HCO3 24.7 (22-26 mml/L) POC ABG Total CO2 26 (23-27mmol/L) POC ABG O2 Sat 100 POC ABG Base Excess -1 ((-2) - (+3)mmol/L) FiO2 100 % Sodium (137-145) mmol/L Potassium (3.6-5.0) mmol/L Chloride (98-107) mmol/L Carbon Dioxide (22-30) mmol/L Anion Gap mmol/L BUN (7-17) mg/dL Creatinine (0.7-1.2) mg/dL Estimated GFR ml/min BUN/Creatinine Ratio % Glucose (65-100) mg/dL Calcium (8.4-10.2) mg/dL Total Bilirubin (0.1-1.2) mg/dL AST (5-40) units/L ALT (7-56) units/L Alkaline Phosphatase (35-129) units/L Troponin T (0.00-0.029) ng/mL NT-Pro-B Natriuret Pep (0-450) pg/mL Total Protein (6.3-8.2) g/dL Albumin (3.9-5) g/dL Albumin/Globulin Ratio % HCG, Qual Negative (Negative) Urine Color (Yellow) Urine Turbidity (Clear) Urine pH (5.0-7.0) Ur Specific [place] (1.003-1.030) Urine Protein (Negative) mg/dL Urine Glucose (UA) (Negative) mg/dL Urine Ketones (Negative) mg/dL Urine Blood (Negative) Urine Nitrite (Negative) Urine Bilirubin (Negative) Urine Urobilinogen (<2.0) mg/dL Ur Leukocyte Esterase (Negative) Urine WBC (Auto) (0.0-6.0) /HPF Urine RBC (Auto) (0.0-6.0) /HPF U Epithel Cells (Auto) (0-13.0) /HPF Salicylates (2.8-20.0) mg/dL Urine Opiates Screen Urine Methadone Screen Acetaminophen (10.0-30.0) ug/mL Ur Barbiturates Screen Ur Phencyclidine Scrn Ur Amphetamines Screen U Benzodiazepines Scrn Urine Cocaine Screen U Marijuana (THC) Screen Drugs of Abuse Note Plasma/Serum Alcohol < 0.01 (0-0.07) % 11/01/18 11/01/18 11/01/18 Range/Units 04:00 04:00 06:38 WBC (4.5-11.0) K/mm3 RBC (3.65-5.03) M/mm3 Hgb (10.1-14.3) gm/dl Hct (30.3-42.9) % MCV (79-97) fl MCH (28-32) pg MCHC (30-34) % RDW (13.2-15.2) % Plt Count (140-440) K/mm3 Add Manual Diff Total Counted Seg Neuts % (Manual) (40.0-70.0) % Band Neutrophils % % Lymphocytes % (Manual) (13.4-35.0) % Reactive Lymphs % (Man) % Monocytes % (Manual) (0.0-7.3) % Eosinophils % (Manual) (0.0-4.3) % Basophils % (Manual) (0.0-1.8) % Metamyelocytes % % Myelocytes % % Promyelocytes % % Blast Cells % % Nucleated RBC % Seg Neutrophils # Man (1.8-7.7) K/mm3 Band Neutrophils # K/mm3 Lymphocytes # (Manual) (1.2-5.4) K/mm3 Abs React Lymphs (Man) K/mm3 Monocytes # (Manual) (0.0-0.8) K/mm3 Eosinophils # (Manual) (0.0-0.4) K/mm3 Basophils # (Manual) (0.0-0.1) K/mm3 Metamyelocytes # K/mm3 Myelocytes # K/mm3 Promyelocytes # K/mm3 Blast Cells # K/mm3 WBC Morphology Hypersegmented Neuts Hyposegmented Neuts Hypogranular Neuts Smudge Cells Toxic Granulation Toxic Vacuolation Dohle Bodies Pelger-Huet Anomaly Brandyn Rods Platelet Estimate Clumped Platelets Plt Clumps, EDTA Large Platelets Giant Platelets Platelet Satelliting Plt Morphology Comment RBC Morphology Dimorphic RBCs Polychromasia Hypochromasia Poikilocytosis Anisocytosis Microcytosis Macrocytosis Spherocytes Pappenheimer Bodies Sickle Cells Target Cells Tear Drop Cells Ovalocytes Helmet Cells [place] Bodies Frankewing Rings Willie Cells Bite Cells Crenated Cell Elliptocytes Acanthocytes (Spur) Rouleaux Hemoglobin C Crystals Schistocytes Malaria parasites Kit Bodies Hem Pathologist Commnt PT 13.7 (12.2-14.9) Sec. INR 1.08 (0.87-1.13) APTT 25.1 D-Dimer 821.90 H (0-234) ng/mlDDU POC ABG pH 7.438 (7.35-7.45) POC ABG pCO2 35.3 (35-45) POC ABG pO2 64 L (80-105) POC ABG HCO3 23.8 (22-26 mml/L) POC ABG Total CO2 25 (23-27mmol/L) POC ABG O2 Sat 93 POC ABG Base Excess 0 ((-2) - (+3)mmol/L) FiO2 21 % Sodium (137-145) mmol/L Potassium (3.6-5.0) mmol/L Chloride (98-107) mmol/L Carbon Dioxide (22-30) mmol/L Anion Gap mmol/L BUN (7-17) mg/dL Creatinine (0.7-1.2) mg/dL Estimated GFR ml/min BUN/Creatinine Ratio % Glucose (65-100) mg/dL Calcium (8.4-10.2) mg/dL Total Bilirubin (0.1-1.2) mg/dL AST (5-40) units/L ALT (7-56) units/L Alkaline Phosphatase (35-129) units/L Troponin T (0.00-0.029) ng/mL NT-Pro-B Natriuret Pep (0-450) pg/mL Total Protein (6.3-8.2) g/dL Albumin (3.9-5) g/dL Albumin/Globulin Ratio % HCG, Qual (Negative) Urine Color (Yellow) Urine Turbidity (Clear) Urine pH (5.0-7.0) Ur Specific [place] (1.003-1.030) Urine Protein (Negative) mg/dL Urine Glucose (UA) (Negative) mg/dL Urine Ketones (Negative) mg/dL Urine Blood (Negative) Urine Nitrite (Negative) Urine Bilirubin (Negative) Urine Urobilinogen (<2.0) mg/dL Ur Leukocyte Esterase (Negative) Urine WBC (Auto) (0.0-6.0) /HPF Urine RBC (Auto) (0.0-6.0) /HPF U Epithel Cells (Auto) (0-13.0) /HPF Salicylates (2.8-20.0) mg/dL Urine Opiates Screen Urine Methadone Screen Acetaminophen (10.0-30.0) ug/mL Ur Barbiturates Screen Ur Phencyclidine Scrn Ur Amphetamines Screen U Benzodiazepines Scrn Urine Cocaine Screen U Marijuana (THC) Screen Drugs of Abuse Note Plasma/Serum Alcohol (0-0.07) % 11/01/18 11/01/18 11/01/18 Range/Units 08:31 20:17 Unknown WBC (4.5-11.0) K/mm3 RBC (3.65-5.03) M/mm3 Hgb (10.1-14.3) gm/dl Hct (30.3-42.9) % MCV (79-97) fl MCH (28-32) pg MCHC (30-34) % RDW (13.2-15.2) % Plt Count (140-440) K/mm3 Add Manual Diff Total Counted Seg Neuts % (Manual) (40.0-70.0) % Band Neutrophils % % Lymphocytes % (Manual) (13.4-35.0) % Reactive Lymphs % (Man) % Monocytes % (Manual) (0.0-7.3) % Eosinophils % (Manual) (0.0-4.3) % Basophils % (Manual) (0.0-1.8) % Metamyelocytes % % Myelocytes % % Promyelocytes % % Blast Cells % % Nucleated RBC % Seg Neutrophils # Man (1.8-7.7) K/mm3 Band Neutrophils # K/mm3 Lymphocytes # (Manual) (1.2-5.4) K/mm3 Abs React Lymphs (Man) K/mm3 Monocytes # (Manual) (0.0-0.8) K/mm3 Eosinophils # (Manual) (0.0-0.4) K/mm3 Basophils # (Manual) (0.0-0.1) K/mm3 Metamyelocytes # K/mm3 Myelocytes # K/mm3 Promyelocytes # K/mm3 Blast Cells # K/mm3 WBC Morphology Hypersegmented Neuts Hyposegmented Neuts Hypogranular Neuts Smudge Cells Toxic Granulation Toxic Vacuolation Dohle Bodies Pelger-Huet Anomaly Brandyn Rods Platelet Estimate Clumped Platelets Plt Clumps, EDTA Large Platelets Giant Platelets Platelet Satelliting Plt Morphology Comment RBC Morphology Dimorphic RBCs Polychromasia Hypochromasia Poikilocytosis Anisocytosis Microcytosis Macrocytosis Spherocytes Pappenheimer Bodies Sickle Cells Target Cells Tear Drop Cells Ovalocytes Helmet Cells [place] Bodies Frankewing Rings Rolfe Cells Bite Cells Crenated Cell Elliptocytes Acanthocytes (Spur) Rouleaux Hemoglobin C Crystals Schistocytes Malaria parasites Kit Bodies Hem Pathologist Commnt PT (12.2-14.9) Sec. INR (0.87-1.13) APTT D-Dimer (0-234) ng/mlDDU POC ABG pH 7.319 L 7.463 H (7.35-7.45) POC ABG pCO2 45.5 H 35.8 (35-45) POC ABG pO2 60 L 76 L (80-105) POC ABG HCO3 23.4 25.6 (22-26 mml/L) POC ABG Total CO2 25 27 (23-27mmol/L) POC ABG O2 Sat 88 96 POC ABG Base Excess -3 2 ((-2) - (+3)mmol/L) FiO2 70 70 % Sodium (137-145) mmol/L Potassium (3.6-5.0) mmol/L Chloride (98-107) mmol/L Carbon Dioxide (22-30) mmol/L Anion Gap mmol/L BUN (7-17) mg/dL Creatinine (0.7-1.2) mg/dL Estimated GFR ml/min BUN/Creatinine Ratio % Glucose (65-100) mg/dL Calcium (8.4-10.2) mg/dL Total Bilirubin (0.1-1.2) mg/dL AST (5-40) units/L ALT (7-56) units/L Alkaline Phosphatase (35-129) units/L Troponin T (0.00-0.029) ng/mL NT-Pro-B Natriuret Pep (0-450) pg/mL Total Protein (6.3-8.2) g/dL Albumin (3.9-5) g/dL Albumin/Globulin Ratio % HCG, Qual (Negative) Urine Color Straw (Yellow) Urine Turbidity Clear (Clear) Urine pH 7.0 (5.0-7.0) Ur Specific [place] 1.009 (1.003-1.030) Urine Protein 100 mg/dl (Negative) mg/dL Urine Glucose (UA) >=500 (Negative) mg/dL Urine Ketones Neg (Negative) mg/dL Urine Blood Neg (Negative) Urine Nitrite Neg (Negative) Urine Bilirubin Neg (Negative) Urine Urobilinogen < 2.0 (<2.0) mg/dL Ur Leukocyte Esterase Neg (Negative) Urine WBC (Auto) 5.0 (0.0-6.0) /HPF Urine RBC (Auto) 2.0 (0.0-6.0) /HPF U Epithel Cells (Auto) < 1.0 (0-13.0) /HPF Salicylates (2.8-20.0) mg/dL Urine Opiates Screen Urine Methadone Screen Acetaminophen (10.0-30.0) ug/mL Ur Barbiturates Screen Ur Phencyclidine Scrn Ur Amphetamines Screen U Benzodiazepines Scrn Urine Cocaine Screen U Marijuana (THC) Screen Drugs of Abuse Note Plasma/Serum Alcohol (0-0.07) % 11/01/18 Range/Units Unknown WBC (4.5-11.0) K/mm3 RBC (3.65-5.03) M/mm3 Hgb (10.1-14.3) gm/dl Hct (30.3-42.9) % MCV (79-97) fl MCH (28-32) pg MCHC (30-34) % RDW (13.2-15.2) % Plt Count (140-440) K/mm3 Add Manual Diff Total Counted Seg Neuts % (Manual) (40.0-70.0) % Band Neutrophils % % Lymphocytes % (Manual) (13.4-35.0) % Reactive Lymphs % (Man) % Monocytes % (Manual) (0.0-7.3) % Eosinophils % (Manual) (0.0-4.3) % Basophils % (Manual) (0.0-1.8) % Metamyelocytes % % Myelocytes % % Promyelocytes % % Blast Cells % % Nucleated RBC % Seg Neutrophils # Man (1.8-7.7) K/mm3 Band Neutrophils # K/mm3 Lymphocytes # (Manual) (1.2-5.4) K/mm3 Abs React Lymphs (Man) K/mm3 Monocytes # (Manual) (0.0-0.8) K/mm3 Eosinophils # (Manual) (0.0-0.4) K/mm3 Basophils # (Manual) (0.0-0.1) K/mm3 Metamyelocytes # K/mm3 Myelocytes # K/mm3 Promyelocytes # K/mm3 Blast Cells # K/mm3 WBC Morphology Hypersegmented Neuts Hyposegmented Neuts Hypogranular Neuts Smudge Cells Toxic Granulation Toxic Vacuolation Dohle Bodies Pelger-Huet Anomaly Brandyn Rods Platelet Estimate Clumped Platelets Plt Clumps, EDTA Large Platelets Giant Platelets Platelet Satelliting Plt Morphology Comment RBC Morphology Dimorphic RBCs Polychromasia Hypochromasia Poikilocytosis Anisocytosis Microcytosis Macrocytosis Spherocytes Pappenheimer Bodies Sickle Cells Target Cells Tear Drop Cells Ovalocytes Helmet Cells [place] Bodies Frankewing Rings Rolfe Cells Bite Cells Crenated Cell Elliptocytes Acanthocytes (Spur) Rouleaux Hemoglobin C Crystals Schistocytes Malaria parasites Kit Bodies Hem Pathologist Commnt PT (12.2-14.9) Sec. INR (0.87-1.13) APTT D-Dimer (0-234) ng/mlDDU POC ABG pH (7.35-7.45) POC ABG pCO2 (35-45) POC ABG pO2 (80-105) POC ABG HCO3 (22-26 mml/L) POC ABG Total CO2 (23-27mmol/L) POC ABG O2 Sat POC ABG Base Excess ((-2) - (+3)mmol/L) FiO2 % Sodium (137-145) mmol/L Potassium (3.6-5.0) mmol/L Chloride (98-107) mmol/L Carbon Dioxide (22-30) mmol/L Anion Gap mmol/L BUN (7-17) mg/dL Creatinine (0.7-1.2) mg/dL Estimated GFR ml/min BUN/Creatinine Ratio % Glucose (65-100) mg/dL Calcium (8.4-10.2) mg/dL Total Bilirubin (0.1-1.2) mg/dL AST (5-40) units/L ALT (7-56) units/L Alkaline Phosphatase (35-129) units/L Troponin T (0.00-0.029) ng/mL NT-Pro-B Natriuret Pep (0-450) pg/mL Total Protein (6.3-8.2) g/dL Albumin (3.9-5) g/dL Albumin/Globulin Ratio % HCG, Qual (Negative) Urine Color (Yellow) Urine Turbidity (Clear) Urine pH (5.0-7.0) Ur Specific [place] (1.003-1.030) Urine Protein (Negative) mg/dL Urine Glucose (UA) (Negative) mg/dL Urine Ketones (Negative) mg/dL Urine Blood (Negative) Urine Nitrite (Negative) Urine Bilirubin (Negative) Urine Urobilinogen (<2.0) mg/dL Ur Leukocyte Esterase (Negative) Urine WBC (Auto) (0.0-6.0) /HPF Urine RBC (Auto) (0.0-6.0) /HPF U Epithel Cells (Auto) (0-13.0) /HPF Salicylates (2.8-20.0) mg/dL Urine Opiates Screen Presumptive negative Urine Methadone Screen Presumptive negative Acetaminophen (10.0-30.0) ug/mL Ur Barbiturates Screen Presumptive negative Ur Phencyclidine Scrn Presumptive negative Ur Amphetamines Screen Presumptive negative U Benzodiazepines Scrn Presumptive negative Urine Cocaine Screen Presumptive negative U Marijuana (THC) Screen Presumptive negative Drugs of Abuse Note Disclamer Plasma/Serum Alcohol (0-0.07) % - EKG Data -: EKG Interpreted by Ms EKG shows normal: sinus rhythm, axis, QRS complexes, ST-T waves Rate: tachycardia (rate 157) Interpretation: other (prolonged QT) - Radiology Data Radiology results: report reviewed, image reviewed - Medical Decision Making 33 yo F with myasthenia gravis presented to ED with generalized weakness, ended up having episode of altered mental status. Upon initially seeing pt, she was tachycardic, tachypneic, clammy, had a blank stare, unresponsive, and had urinary incontinence. Appeared to be possible seizure, although no history. Pt soon became responsive, but was not initially following commands or answering questions, only saying prayers out loud. Ativan 1 mg was given to calm the pt. BiPAP was initiated due to hx of myasthenia gravis and need to protect respiratory status. Initial O2 sats recorded were inaccurate likely due to acrylic nails. Pulse ox was moved to pt's ear which gave a normal reading. CT Head negative. Labs unremarkable, except for mild hypokalemia and hyperglycemia. Pt has since returned to her baseline, father and at bedside to confirm. Pt A&O x 3, answers questions appropriately. States feels like possible MG exacerbation. All of pt's neurologists at [place]. Would prefer to be transferred there. Also, spoke with our hospitalist here at [facility], Dr Carr, states unable to appropriately care for this pt due to past issues that they have had with obtaining IVIG and needing to transfer pts out because of th at. Spoke with Dr Coffey at [place], accepted transfer. Initial ABG normal on BiPAP. BiPAP was removed, ABG repeated after 40 minutes and remains normal, no CO2 retention. Pt then decompensated about an hour after being off of BiPAP, reporting shortness of breath, became tachycardic and anxious again, so decision was made to intubate. D-dimer also sent to check for PE. Unable to obtain CTA (as scanner is currently down) or V/Q ( an out of radioisotope), so if D-dimer elevated, will treat prophylactically after discussion with hole digger truck driver. Awaiting call back from neurointensivist. Pt signed out to Dr Espinal at this time. - Differential Diagnosis myasthenia gravis, seizure, PE Critical Care Time: Yes Critical care time in (mins) excluding proc time.: 70 Critical care attestation.: If time is entered above; I have spent that time in minutes in the direct care of this critically ill patient, excluding procedure time. Critical Care Time: 70 min ED Disposition Is pt being admited?: No
[2018-11-01 03:26] LABS: Hematocrit 39.9 % (30.3-42.9); Hemoglobin 12.9 gm/dl (10.1-14.3); Mean Corpuscular HGB Conc 32 % (30-34); Mean Corpuscular Volume 82 fl (79-97); Red Blood Count 4.89 M/mm3 (3.65-5.03); Red Cell Distribution Width 14.9 % (13.2-15.2)
[2018-11-01 03:29] LABS: Platelet Count 297 K/mm3 (140-440)
[2018-11-01 03:32] LABS: INR 1.02 (0.87-1.13)
[2018-11-01 03:40] LABS: Alanine Aminotransferase 20 units/L (7-56); BUN/Creatinine Ratio 10; Blood Urea Nitrogen 8 mg/dL (7-17); Calcium 8.6 mg/dL (8.4-10.2); Hemolysis Index 33
[2018-11-01 03:43] LABS: Partial Thromboplastin Time TNR Sec. (24.2-36.6)
--- NOTE | 2018-11-01 04:04 | XRay Report ---
CHEST 1 VIEW INDICATION: sob. COMPARISON: None. FINDINGS: Support devices: None. Heart: Normal. Lungs/Pleura: There are low lung volumes. Retrocardiac opacity is nonspecific. Lungs are otherwise cl ear. No significant effusion, no pneumothorax. IMPRESSION: 1. Given the low lung volumes, retrocardiac opacity may be atelectatic but is nonspecific. Lungs are otherwise clear. Signer Name: Fred Robert MD Signed: 11/01/2018 4:00 AM Workstation Name: [id number]
[2018-11-01 04:39] LABS: Bilirubin,Urine NEG (Negative); Blood,Urine NEG (Negative); Color,Urine Straw (Yellow); Urobilinogen,Urine < 2.0 mg/dL (<2.0)
[2018-11-01 04:41] LABS: INR 1.08 (0.87-1.13)
[2018-11-01 04:42] LABS: Partial Thromboplastin Time 25.1 Sec. (24.2-36.6)
[2018-11-01 04:43] LABS: Basophils % (Manual) 0 % (0.0-1.8); Eosinophils % (Manual) 0 % (0.0-4.3); Total Cells Counted 100
[2018-11-01 04:44] LABS: Platelet Clumps Few; Platelet Estimate Consistent w Auto; RBC Morphology Normal
[2018-11-01 04:45] LABS: Benzodiazepines Screen,Urine PRESUMPTIVE NEGATIVE; Cannabinoid Screen,Urine PRESUMPTIVE NEGATIVE; Cocaine Screen,Urine PRESUMPTIVE NEGATIVE; Methadone Screen,Urine PRESUMPTIVE NEGATIVE; Opiate Screen,Urine PRESUMPTIVE NEGATIVE
[2018-11-01 05:04] LABS: Amphetamine Screen,Urine PRESUMPTIVE NEGATIVE
--- NOTE | 2018-11-01 05:04 | Cat Scan Report ---
CT HEAD WITHOUT CONTRAST INDICATION: ams. TECHNIQUE: All CT scans at this location are performed using CT dose reduction for ALARA by means of automated e xposure control. COMPARISON: None available. FINDINGS: HEMORRHAGE: None. EXTRA-AXIAL SPACES: Normal in size and morphology for the patient's age. VENTRICULAR SYSTEM: Normal in size and morphology for the patient's age. BRAIN PARENCHYMA: No acute findings. MIDLINE SHIFT OR HERNIATION: None. ORBITS: Normal as visualized. SOFT TISSUES OF HEAD: Normal. CALVARIUM: Normal. VISUALIZED PARANASAL SINUSES AND MASTOID AIR CELLS: Clear. ADDITIONAL FINDINGS: None. IMPRESSION: 1. No acute intracranial abnormality. Signer Name: Fred Robert MD Signed: 11/01/2018 5:00 AM Workstation Name: [id number]
[2018-11-01] MEDS ORDERED: NACL 0.9% 1000 ML 1,000 ML IV ONE ×3 (06:34→14:43)
[2018-11-01] MEDS ORDERED: APRESOLINE IV ONE (07:25)
[2018-11-01] MEDS ORDERED: ZEMURON IV ONE ×2 (07:30→07:40)
[2018-11-01] MEDS ORDERED: AMIDATE IV ONE ×2 (07:30→07:40)
[2018-11-01] MEDS ORDERED: DIPRIVAN 10 MG/ML 1,000 MG/100 ML BOTTLE IV ONE (07:52)
[2018-11-01] MEDS: DIPRIVAN 10 MG/ML 1,000 MG/100 ML BOTTLE IV SCH ×3 (08:05→21:41)
--- NOTE | 2018-11-01 08:28 | XRay Report ---
CHEST 1 VIEW INDICATION: Endotracheal tube placement. COMPARISON: 11/01/2018 at 0343 hours FINDINGS: Support devices: An endotracheal tube is been inserted which terminates 3.5 cm superior to the erika . Heart: Sternotomy wires indicate previous thoracic surgery, correlate with history. Heart size is bor derline. Lungs/Pleura: Mild central pulmonary venous congestion has developed. Retrocardiac opacity is unchang ed and probably represents segmental atelectasis. Otherwise, the lungs are clear. Additional findings: None. IMPRESSION: Adequate placement of the endotracheal tube. Borderline heart size and mild central pulmonary venous congestion. Signer Name: Harley Leonard Jr, MD Signed: 11/01/2018 8:23 AM Workstation Name: [id number]
[2018-11-01] MEDS ORDERED: LOVENOX SUB-Q SCH ×2 (10:00→11:00)
[2018-11-01] MEDS ORDERED: NACL 0.9% 1000 ML 1,000 ML ONE (13:33)
[2018-11-01 21:17] VITALS: BP 147/86
== END 2018-11-01 21:49 | disposition other institution (70) ==
LOC: ED 02:04
DX: J96.90 Respiratory failure, unspecified, unspecified whether with hypoxia or hypercapnia (principal); R56.9 Unspecified convulsions; G70.00 Myasthenia gravis without (acute) exacerbation; I10 Essential (primary) hypertension; J45.909 Unspecified asthma, uncomplicated
CPT/HCPCS: 31500; 36415; 70450; 71045; 80053; 80307; 81001; 82803; 83880; 84484; 84703; 85007; 85025; 85379; 85610; 85730; 93005; 93010; 96361; 96372; 96374; 96375; 99291; J0360; J1650; J2060; J2704; J7030; 51702; 80320; 94002; G0480

== ENCOUNTER 2019-02-18 09:02 | Outpatient (CLI) | payer MEDICAID ==
[2019-02-18 09:55] LABS: Blood Urea Nitrogen 7 mg/dL (7-17)
--- NOTE | 2019-02-18 11:21 | Cat Scan Report ---
CTA CHEST WITH IV CONTRAST INDICATION: Precordial chest pain. TECHNIQUE: Axial CT images were obtained through the chest after injection of 100 mL of Omnipaque 300 IV contras t. 3 plane MIP reconstructions were produced. All CT scans at this location are performed using CT do se reduction for ALARA by means of automated exposure control. COMPARISON: Chest x-ray on 11/01/2018. FINDINGS: Pulmonary Arteries: No pulmonary emboli. Lungs: No significant abnormality. Trachea and Bronchi: No significant abnormality. Heart and Pericardium: The heart size is normal. There is no pericardial effusion. There is been prev ious median sternotomy. Vasculature: No significant abnormality. Lymphatics: No lymphadenopathy. Additional Findings: There is a 1.5 x 1.5 cm discrete mass in the subareolar right breast. Upper Abdomen: No acute findings. Skeletal Structures: No significant osseous abnormality. IMPRESSION: 1. No CT evidence for pulmonary embolism. 2. No acute findings. 3. Incidental 1.5 cm mass in the subareolar right breast (Vasquez image was saved in PACS). Further evalu ation with clinical exam and breast ultrasound is recommended. Signer Name: Qamar Razo MD Signed: 02/18/2019 11:17 AM Workstation Name: [id number]
== END 2019-02-18 09:03 | disposition home or self-care (01) ==
LOC: CT 09:02
PROVIDERS: ATTEND Internal Medicine Cardiovascular Disease
DX: R07.2 Precordial pain (principal); I10 Essential (primary) hypertension
CPT/HCPCS: 36415; 71275; 82565; 84520; Q9967

== ENCOUNTER 2019-02-18 11:13 | Emergency (ER) | payer MEDICAID ==
--- NOTE | 2019-02-18 11:20 | Emergency Department Report ---
Blank Doc - Documentation Documentation: 33-year-old female that presents with abdominal pain and generalized weakness. Stated has left eyelid drooping but has resolved. This initial assessment/diagnostic orders/clinical plan/treatment(s) is/are subject to change based on patient's health status, clinical progression and re- assessment by fellow clinical providers in the ED. Further treatment and workup at subsequent clinical providers discretion. Patient/guardians urged not to elope from the ED as their condition may be serious if not clinically assessed and managed. Initial orders include: 1- Patient sent to [facility] for further evaluation and treatment 2- labs 3- UA
[2019-02-18 12:39] LABS: Alanine Aminotransferase 11 units/L (7-56); Albumin 4.1 g/dL (3.9-5); BUN/Creatinine Ratio 12; Blood Urea Nitrogen 7 mg/dL (7-17); Calcium 9.2 mg/dL (8.4-10.2); Hemolysis Index 0
[2019-02-18 13:16] LABS: Basophils # (Auto) 0.1 K/mm3 (0.0-0.1); Eosinophils # (Auto) 0.1 K/mm3 (0.0-0.4); Eosinophils % (Auto) 0.8 % (0.0-4.3); Monocytes # (Auto) 1.1 K/mm3 (0.0-0.8); Monocytes % (Auto) 9.1 % (0.0-7.3)
[2019-02-18 13:19] LABS: Basophils % (Auto) 1.1 % (0.0-1.8); Lymphocytes # (Auto) 4.3 K/mm3 (1.2-5.4); Lymphocytes % (Auto) 35.4 % (13.4-35.0); Red Blood Count 5.16 M/mm3 (3.65-5.03)
[2019-02-18 13:20] LABS: Hematocrit 40.1 % (30.3-42.9); Hemoglobin 12.6 gm/dl (10.1-14.3); Mean Corpuscular HGB Conc 31 % (30-34); Mean Corpuscular Volume 78 fl (79-97)
[2019-02-18] MEDS ORDERED: POTASSIUM CHLORIDE ER 20 MEQ TAB PO ONE (13:45)
[2019-02-18 13:58] LABS: Platelet Count 241 K/mm3 (140-440)
--- NOTE | 2019-02-18 14:29 | Emergency Department Report ---
<FAUSTINA CROSS - Last Filed: 02/18/19 19:45> ED Abdominal Pain HPI - General Chief Complaint: Abdominal Pain Stated Complaint: EYE PAIN/DIARRHEA Time Seen by Provider: 02/18/19 11:18 Source: patient Mode of arrival: Wheelchair Limitations: No Limitations - History of Present Illness Initial Comments: This is a 33-year-old -Citizen Of [place] female who presents to the emergency room with left eye drainage and pain since last night. Patient also reports abdominal pain with diarrhea that started today. She reports abdominal pain is diffuse and cramping sensation that is intermittent. Reports pain is worse with bowl movements. She is currently taking NSAIDs with minimal improvement of symptoms. She denies fever, chills, cough, nausea, vomiting, dizziness, chest pain, or palpitations. MD Complaint: abdominal pain Onset/Timin -: days(s) Location: diffuse Radiation: none Migration to: no migration Severity: moderate Severity scale (0 -10): 6 Quality: cramping Consistency: intermittent Improves With: nothing Worsens With: eating Associated Symptoms: diarrhea. denies: nausea, vomiting, fever, chills, constipation, dysuria, hematemesis, hematochezia, hematuria - Related Data Home Medications Medication Instructions Recorded Confirmed Last Taken Diltiazem HCl [Diltiazem 24Hr ER] 240 mg PO DAILY 01/07/13 11/13/14 11/13/14 Mycophenolate [Cellcept] 1,000 mg PO BID 01/07/13 11/13/14 11/13/14 500 mg Pyridostigmine [place] (Nf) 180 mg PO QHS 01/07/13 11/13/14 11/13/14 [Mestinon (Nf)] 180 mg Pyridostigmine [Mestinon] 60 mg PO Q6HR 01/07/13 11/13/14 11/13/14 60 mg Telmisartan [Micardis] 80 mg PO QDAY 05/27/14 11/13/14 11/13/14 predniSONE [Prednisone] 10 mg PO QDAY 05/27/14 11/13/14 11/13/14 Previous Rx's Medication Instructions Recorded Last Taken Type ALBUTEROL Inhaler (OR & NICU) 2 puff IH QID PRN #1 inhalation 03/13/16 Unknown Rx [ProAir HFA Inhaler] Fluticasone [Flonase] 2 spray NS QDAY #1 bottle 11/07/16 Unknown Rx Loratadine [Claritin] 10 mg PO DAILY #30 tablet 11/07/16 Unknown Rx predniSONE [Deltasone] 40 mg PO QDAY 3 Days tab 11/07/16 Unknown Rx Erythromycin [Erythromycin Ophth 1 applic OS QID #7 day 12/30/17 Unknown Rx Oint] Erythromycin [Erythromycin Ophth 10 applic OP QID 7 Days #1 tube 02/18/19 Unknown Rx Oint] Allergies Allergy/AdvReac Type Severity Reaction Status Date / Time No Known Allergies Allergy Verified 02/24/16 20:48 ED Review of Systems Constitutional: denies: chills, fever Respiratory: denies: cough, shortness of breath, wheezing Cardiovascular: denies: chest pain, palpitations Gastrointestinal: abdominal pain, diarrhea. denies: nausea, vomiting Genitourinary: denies: urgency, dysuria, discharge Musculoskeletal: denies: back pain, joint swelling, arthralgia Skin: denies: rash, lesions Neurological: denies: headache, weakness, paresthesias Psychiatric: denies: anxiety, depression ED Past Medical Hx - Past Medical History Hx Hypertension: Yes Hx Heart Attack/AMI: No Hx Congestive Heart Failure: No Hx Diabetes: No Hx Deep Vein Thrombosis: No Hx Pulmonary Embolism: No Hx GERD: No Hx Liver Disease: No Hx Renal Disease: No Hx Sickle Cell Disease: No Hx Arthritis: No Hx Seizures: No Hx Kidney Stones: No Hx Asthma: Yes Hx COPD: No Hx Tuberculosis: No Hx Dementia: No Hx HIV: No Additional medical history: myastheia gravis - Surgical History Past Surgical History?: Yes Hx Coronary Stent: No Hx Open Heart Surgery: No Hx Pacemaker: No Hx Internal Defibrillator: No Hx Cholecystectomy: No Hx Appendectomy: No Hx Breast Surgery: No Additional Surgical History: Thyroid gland removed via open heart - Social History Smoking Status: Never Smoker Substance Use Type: None - Medications Home Medications: Home Medications Medication Instructions Recorded Confirmed Last Taken Type Diltiazem HCl [Diltiazem 24Hr ER] 240 mg PO DAILY 01/07/13 11/13/14 11/13/14 Hi story Mycophenolate [Cellcept] 1,000 mg PO BID 09/16/13 07/23/15 07/23/15 History 500 mg Pyridostigmine [place] (Nf) 180 mg PO QHS 01/07/13 11/13/14 11/13/14 History [Mestinon (Nf)] 180 mg Pyridostigmine [Mestinon] 60 mg PO Q6HR 01/07/13 11/13/14 11/13/14 History 60 mg Telmisartan [Micardis] 80 mg PO QDAY 05/27/14 11/13/14 11/13/14 History predniSONE [Prednisone] 10 mg PO QDAY 05/27/14 11/13/14 11/13/14 History ALBUTEROL Inhaler (OR & NICU) 2 puff IH QID PRN #1 inhalation 03/13/16 Unknown Rx [ProAir HFA Inhaler] Fluticasone [Flonase] 2 spray NS QDAY #1 bottle 11/07/16 Unknown Rx Loratadine [Claritin] 10 mg PO DAILY #30 tablet 11/07/16 Unknown Rx predniSONE [Deltasone] 40 mg PO QDAY 3 Days tab 11/07/16 Unknown Rx Erythromycin [Erythromycin Ophth 1 applic OS QID #7 day 12/30/17 Unknown Rx Oint] Erythromycin [Erythromycin Ophth 10 applic OP QID 7 Days #1 tube 02/18/19 Unknown Rx Oint] ED Physical Exam - General Limitations: No Limitations General appearance: alert, in no apparent distress, obese (morbidly) - Eye Eye exam: Present: PERRL, EOMI, conjunctival injection (left eye). Absent: pe riorbital swelling, periorbital tenderness Pupils: Present: normal accommodation - Respiratory Respiratory exam: Present: normal lung sounds bilaterally. Absent: respiratory distress - Cardiovascular Cardiovascular Exam: Present: regular rate, normal rhythm. Absent: systolic murmur, diastolic murmur, rubs, gallop - GI/Abdominal GI/Abdominal exam: Present: soft, normal bowel sounds. Absent: distended, tenderness, guarding, rebound, rigid, organomegaly, mass - Back Exam Back exam: Absent: CVA tenderness (R), CVA tenderness (L) - Neurological Exam Neurological exam: Present: alert, oriented X3 - Psychiatric Psychiatric exam: Present: normal affect, normal mood - Skin Skin exam: Present: warm, dry, intact, normal color. Absent: rash ED Medical Decision Making - Lab Data Result diagrams: 02/18/19 13:02 02/18/19 15:53 - Medical Decision Making This is a 33 y.o. female that presents with abdominal pain and left eye pain. Patient is stable and was examined by me. Vitals stable. Obtained labs. Mild leukopenia, hypokalemia. Given Klor-Con and normal saline once in ER. Second potassium pending. Patient will be treated for gastroenteritis. Start Imodium. Left conjunctiva injected with purulent discharge. Start erythromycin ointment for conjunctivitis of left eye. Second potassium pending. Chart signed to NATALIA Nuñez ED Disposition Clinical Impression: Nausea and vomiting Qualifiers: Vomiting type: unspecified Vomiting Intractability: non-intractable Qualified Code(s): R11.2 - Nausea with vomiting, unspecified Abdominal pain Qualifiers: Abdominal location: generalized Qualified Code(s): R10.84 - Generalized abdominal pain Conjunctivitis Qualifiers: Conjunctivitis type: acute Acute conjunctivitis type: bacterial Laterality: left Qualified Code(s): H10.32 - Unspecified acute conjunctivitis, left eye Disposition: DC- TO HOME OR SELFCARE Is pt being admited?: No Condition: Stable Instructions: Conjunctivitis (ED), Abdominal Pain (ED) Additional Instructions: [place] is very contagious so please wash hands frequently. Don't share any towels or bedding to prevent spread of infection. Follow up with Long Lines Operator in 24-72 hours. Use cool compress to each eye to decrease swelling. Avoid rubbing or touching eyes, because rubbing eyes can cause worsening symptoms. Take medication as prescribed. Frequent hand washing is important to reduce spread. Prompt disinfection of contaminated surfaces with household chlorine bleach-based ear nose throat surgeon and washing of soiled clothing and bedding should be advised. If food or water is thought to be contaminated, it should be avoided. Increase fluid intake. Drinks high in sugars such as carbonated soft drinks, fruit juice, and highly sugared liquids should be avoided. Return to ER if swelling don't improve or difficulty breathing after 2 days of medication. Prescriptions: Erythromycin [Erythromycin Ophth Oint] 10 applic OP QID 7 Days #1 tube Referrals: [facility] [Outside] - 3-5 Days [facility] [Outside] - 3-5 Days [facility] [Outside] - 3-5 Days Time of Disposition: 19:48 <MELODY EVERETT - Last Filed: 02/18/19 20:39> ED Review of Systems ROS: Stated complaint: EYE PAIN/DIARRHEA Other details as noted in HPI ED Course Vital Signs 02/18/19 11:19 Temperature 98.1 F Pulse Rate 93 H Respiratory 20 Rate Blood Pressure 168/126 O2 Sat by Pulse 100 Oximetry ED Medical Decision Making - Lab Data Result diagrams: 02/18/19 13:02 02/18/19 18:44 Labs 02/18/19 02/18/19 02/18/19 12:27 13:02 13:02 WBC 12.0 H RBC 5.16 H Hgb 12.6 Hct 40.1 MCV 78 L MCH 25 L MCHC 31 RDW 15.0 Plt Count 241 Lymph % (Auto) 35.4 H [place] % (Auto) 9.1 H Eos % (Auto) 0.8 Baso % (Auto) 1.1 Lymph # 4.3 [place] # 1.1 H Eos # 0.1 Baso # 0.1 Seg Neutrophils % 53.6 Seg Neutrophils # 6.5 Sodium 144 Potassium 2.9 L* Chloride 108.8 H Carbon Dioxide 21 L Anion Gap 17 BUN 7 Creatinine 0.6 L Estimated GFR > 60 BUN/Creatinine Ratio 12 Glucose 87 Calcium 9.2 Total Bilirubin 0.50 AST 13 ALT 11 Alkaline Phosphatase 56 Total Protein 7.9 Albumin 4.1 Albumin/Globulin Ratio 1.1 Lipase 28 HCG, Qual Negative Urine Color Urine Turbidity Urine pH Ur Specific [place] Urine Protein Urine Glucose (UA) Urine Ketones Urine Blood Urine Nitrite Urine Bilirubin Urine Urobilinogen Ur Leukocyte Esterase Urine WBC (Auto) Urine RBC (Auto) U Epithel Cells (Auto) Urine Mucus 02/18/19 02/18/19 02/18/19 15:20 15:53 18:44 WBC RBC Hgb Hct MCV MCH MCHC RDW Plt Count Lymph % (Auto) [place] % (Auto) Eos % (Auto) Baso % (Auto) Lymph # [place] # Eos # Baso # Seg Neutrophils % Seg Neutrophils # Sodium Potassium TNR 3.5 L D Chloride Carbon Dioxide Anion Gap BUN Creatinine Estimated GFR BUN/Creatinine Ratio Glucose Calcium Total Bilirubin AST ALT Alkaline Phosphatase Total Protein Albumin Albumin/Globulin Ratio Lipase HCG, Qual Urine Color Straw Urine Turbidity Clear Urine pH 7.0 Ur Specific [place] 1.036 H Urine Protein <15 mg/dl Urine Glucose (UA) Neg Urine Ketones Tr Urine Blood Neg Urine Nitrite Neg Urine Bilirubin Neg Urine Urobilinogen < 2.0 Ur Leukocyte Esterase Neg Urine WBC (Auto) 1.0 Urine RBC (Auto) < 1.0 U Epithel Cells (Auto) 9.0 Urine Mucus Few - Medical Decision Making repeat k 3.5, pt previously given dc instructions by provider, dc'd to home in stable condition at this time. Critical care attestation.: If time is entered above; I have spent that time in minutes in the direct care of this critically ill patient, excluding procedure time.
[2019-02-18] MEDS ORDERED: SODIUM CHLORIDE 0.9% 1000 ML 1,000 ML IV ONE (14:53)
[2019-02-18 15:49] LABS: Bilirubin,Urine NEG (Negative); Blood,Urine NEG (Negative); Color,Urine Straw (Yellow); Mucus,Urine FEW /HPF; Protein,Urine <15 mg/dL mg/dL (Negative); RBC,Urine < 1.0 /HPF (0.0-6.0); Urobilinogen,Urine < 2.0 mg/dL (<2.0)
[2019-02-18 21:52] VITALS: BP 188/115
== END 2019-02-18 20:55 | disposition home or self-care (01) ==
LOC: ED 11:13
DX: H10.32 Unspecified acute conjunctivitis, left eye (principal); R11.2 Nausea with vomiting, unspecified; R10.84 Generalized abdominal pain; I10 Essential (primary) hypertension; J45.909 Unspecified asthma, uncomplicated; Z79.899 Other long term (current) drug therapy
CPT/HCPCS: 36415; 80053; 81001; 83690; 84132; 84703; 85025; 96360; 96361; 99283; J7030

== ENCOUNTER 2019-03-27 10:53 | Outpatient (CLI) | payer MEDICAID ==
--- NOTE | 2019-03-28 09:11 | Mammography Report ---
BILATERAL DIGITAL DIAGNOSTIC MAMMOGRAM WITH CAD 03/27/2019 BILATERAL COMPLETE BREAST ULTRASOUND INDICATION: Bilateral BREAST MASSES N63.20 TECHNIQUE: Digital bilateral mammographic imaging was performed. Complete ultrasound of all four (4) quadrants was performed. This examination was interpreted with the benefit of Computer-Aided Detecti on (CAD) analysis. COMPARISON: None. FINDINGS: Breast Density: The breasts are heterogeneously dense, which may obscure small masses. MAMMOGRAPHIC FINDINGS: A right outer poorly marginated asymmetry and a left lower inner partially cir cumscribed asymmetry. No architectural distortion or suspicious calcifications. ULTRASOUND FINDINGS: Complete sonographic evaluation of all 4 quadrants and retroareolar region was p erformed. Ultrasound of the right breast demonstrated a solid heterogeneous hypoechoic lobular shaped mass at 9 :00 2 cm from the nipple measuring 2.3 x 1.6 x 1.8 cm. This mass correlates with the mammographic asy mmetry in the outer right breast on the CC view. us hypoechoic mass at 8:00 5 cm from the nipple nils ures 1.7 x 0.6 x 2.0 cm. This mass has hyperechoic components. Additional solid heterogeneous hypoech oic masses at 5:00 2 cm from the nipple measure 1.7 x 0.7 x 0.5 cm and 1.2 x 0.3 x 1.1 cm. Ultrasound of the right axilla demonstrated no suspicious lymph nodes. Several benign-appearing lymph nodes wit h central fat. Ultrasound of the left breast demonstrated an oval slightly irregular solid hypoechoic mass at 8:00 6 cm from the nipple measuring 2.5 x 2.3 x 1.0 cm. It produces mild shadowing and correlates with the mammographic mass. Moderate retroareolar duct ectasia and a 6 mm oval heterogeneous predominantly hyp erechoic intraductal mass at 9:00 subareolar. Several scattered tiny cysts and a few clusters of cyst s. Ultrasound of the left axilla demonstrated no suspicious lymph nodes. Several benign-appearing lym ph nodes with central fat. IMPRESSION: 1. 3 solid right breast masses. Recommend ultrasound-guided needle biopsy of the largest mass at 9:00 2 cm from the nipple. Recommend ultrasound follow-up of the other masses. 2. 2 solid left breast masses. Recommend ultrasound-guided needle biopsy of the mass at 8:00 6 cm fro m the nipple and recommend ultrasound-guided vacuum-assisted biopsy of the 6 mm intraductal mass at 9 :00 subareolar. Follow up recommendation: Biopsy BI-RADS Category 4: Suspicious for Malignancy. A "normal" or negative report should not discourage follow up or biopsy of a clinically significant f inding. A written summary of these findings will be mailed to the patient. The patient will be entered into a mammography reporting system which will generate a reminder letter for the patient's next appointmen t at the appropriate interval. According to the [employer], yearly mammograms are recommended starting at age 40 and continuing as long as a woman is in good health. Breast MRI is recommended for women with an leighann roximately 20-25% or greater lifetime risk of breast cancer, including women with a strong family his tory of breast or ovarian cancer and women who have been treated for Hodgkin's disease. Signer Name: Huang Maldonado MD Signed: 03/28/2019 9:07 AM Workstation Name: [id number]
== END 2019-03-27 10:54 | disposition home or self-care (01) ==
LOC: SPVWC 10:53
PROVIDERS: ATTEND Surgery
DX: N60.02 Solitary cyst of left breast (principal); N63.13 Unspecified lump in the right breast, lower outer quadrant; N63.24 Unspecified lump in the left breast, lower inner quadrant
CPT/HCPCS: 77066

== ENCOUNTER 2019-04-01 13:16 | Emergency (ER) | payer MEDICAID ==
--- NOTE | 2019-04-01 13:34 | Emergency Department Report ---
Blank Doc - Documentation Documentation: 34-year-old female that presents with diarrhea and generalized weakness x1 week. This initial assessment/diagnostic orders/clinical plan/treatment(s) is/are subject to change based on patient's health status, clinical progression and re- assessment by fellow clinical providers in the ED. Further treatment and workup at subsequent clinical providers discretion. Patient/guardians urged not to elope from the ED as their condition may be serious if not clinically assessed and managed. Initial orders include: 1- Patient sent to [facility] for further evaluation and treatment 2- labs
[2019-04-01 15:19] LABS: Basophils # (Auto) 0.1 K/mm3 (0.0-0.1); Basophils % (Auto) 1.1 % (0.0-1.8); Eosinophils # (Auto) 0.1 K/mm3 (0.0-0.4); Eosinophils % (Auto) 1.3 % (0.0-4.3); Hematocrit 41.5 % (30.3-42.9); Hemoglobin 13.1 gm/dl (10.1-14.3); Lymphocytes # (Auto) 2.1 K/mm3 (1.2-5.4); Lymphocytes % (Auto) 27.5 % (13.4-35.0); Mean Corpuscular HGB Conc 32 % (30-34); Mean Corpuscular Volume 78 fl (79-97); Monocytes # (Auto) 0.8 K/mm3 (0.0-0.8); Monocytes % (Auto) 10.9 % (0.0-7.3); Platelet Count 323 K/mm3 (140-440); Red Blood Count 5.34 M/mm3 (3.65-5.03); Red Cell Distribution Width 15.6 % (13.2-15.2)
[2019-04-01 15:38] LABS: BUN/Creatinine Ratio 21; Blood Urea Nitrogen 15 mg/dL (7-17); Calcium 9.8 mg/dL (8.4-10.2); Hemolysis Index 90
[2019-04-01] MEDS ORDERED: POTASSIUM CHLORIDE ER 20 MEQ TAB PO ONE (16:04)
--- NOTE | 2019-04-01 16:20 | Emergency Department Report ---
ED General Adult HPI - General Chief complaint: Nausea/Vomiting/Diarrhea Stated complaint: LOW POTASSIUM Time Seen by Provider: 04/01/19 13:33 Source: patient Mode of arrival: Wheelchair Limitations: No Limitations - History of Present Illness Initial comments: 34-year-old female presents to the emergency room reporting intermittent diarrhea 1 week. Patient reports her last loose stool was on Monday. Patient denies any abdominal pain no nausea no vomiting. Patient reports that she has a history of [place] gravidas hypertension and asthma. Patient has taken nothing for her diarrhea. Patient reports she has a primary care provider Dr. Hodge but did not follow-up. Patient is aware that she should've consumed bananas and orange juice as she knows she has a history of hypo-kalemia. She denies any cramping no numbness or tingling. Severity scale (0 -10): 0 Associated Symptoms: weakness, other (diarrhea). denies: nausea/vomiting Treatments Prior to Arrival: none - Related Data Home Medications Medication Instructions Recorded Confirmed Last Taken Diltiazem HCl [Diltiazem 24Hr ER] 240 mg PO DAILY 01/07/13 11/13/14 11/13/14 Mycophenolate [Cellcept] 1,000 mg PO BID 01/07/13 11/13/14 11/13/14 500 mg Pyridostigmine [place] (Nf) 180 mg PO QHS 01/07/13 11/13/14 11/13/14 [Mestinon (Nf)] 180 mg Pyridostigmine [Mestinon] 60 mg PO Q6HR 01/07/13 11/13/14 11/13/14 60 mg Telmisartan [Micardis] 80 mg PO QDAY 05/27/14 11/13/14 11/13/14 predniSONE [Prednisone] 10 mg PO QDAY 05/27/14 11/13/14 11/13/14 Previous Rx's Medication Instructions Recorded Last Taken Type ALBUTEROL Inhaler (OR & NICU) 2 puff IH QID PRN #1 inhalation 03/13/16 Unknown Rx [ProAir HFA Inhaler] Fluticasone [Flonase] 2 spray NS QDAY #1 bottle 11/07/16 Unknown Rx Loratadine [Claritin] 10 mg PO DAILY #30 tablet 07/17/17 Unknown Rx predniSONE [Deltasone] 40 mg PO QDAY 3 Days tab 11/07/16 Unknown Rx Erythromycin [Erythromycin Ophth 1 applic OS QID #7 day 12/30/17 Unknown Rx Oint] Erythromycin [Erythromycin Ophth 10 applic OP QID 7 Days #1 tube 02/18/19 Unkn own Rx Oint] Allergies Allergy/AdvReac Type Severity Reaction Status Date / Time No Known Allergies Allergy Verified 02/24/16 20:48 ED Review of Systems ROS: Stated complaint: LOW POTASSIUM Other details as noted in HPI Comment: All other systems reviewed and negative ED Past Medical Hx - Past Medical History Previous Medical History?: Yes Hx Hypertension: Yes Hx Heart Attack/AMI: No Hx Congestive Heart Failure: No Hx Diabetes: No Hx Deep Vein Thrombosis: No Hx Pulmonary Embolism: No Hx GERD: No Hx Liver Disease: No Hx Renal Disease: No Hx Sickle Cell Disease: No Hx Arthritis: No Hx Seizures: No Hx Kidney Stones: No Hx Asthma: Yes Hx COPD: No Hx Tuberculosis: No Hx Dementia: No Hx HIV: No Additional medical history: myastheia gravis - Surgical History Past Surgical History?: Yes Hx Coronary Stent: No Hx Open Heart Surgery: No Hx Pacemaker: No Hx Internal Defibrillator: No Hx Cholecystectomy: No Hx Appendectomy: No Hx Breast Surgery: No Additional Surgical History: Thyamectomy - Social History Smoking Status: Never Smoker Substance Use Type: None - Medications Home Medications: Home Medications Medication Instructions Recorded Confirmed Last Taken Type Diltiazem HCl [Diltiazem 24Hr ER] 240 mg PO DAILY 01/07/13 11/13/14 11/13/14 History Mycophenolate [Cellcept] 1,000 mg PO BID 01/07/13 11/13/14 11/13/14 History 500 mg Pyridostigmine [place] (Nf) 180 mg PO QHS 01/07/13 11/13/14 11/13/14 History [Mestinon (Nf)] 180 mg Pyridostigmine [Mestinon] 60 mg PO Q6HR 01/07/13 11/13/14 11/13/14 History 60 mg Telmisartan [Micardis] 80 mg PO QDAY 05/27/14 11/13/14 11/13/14 History predniSONE [Prednisone] 10 mg PO QDAY 05/27/14 11/13/14 11/13/14 History ALBUTEROL Inhaler (OR & NICU) 2 puff IH QID PRN #1 inhalation 03/13/16 Unknown Rx [ProAir HFA Inhaler] Fluticasone [Flonase] 2 spray NS QDAY #1 bottle 11/07/16 Unknown Rx Loratadine [Claritin] 10 mg PO DAILY #30 tablet 11/07/16 Unknown Rx predniSONE [Deltasone] 40 mg PO QDAY 3 Days tab 11/07/16 Unknown Rx Erythromycin [Erythromycin Ophth 1 applic OS QID #7 day 12/30/17 Unknown Rx Oint] Erythromycin [Erythromycin Ophth 10 applic OP QID 7 Days #1 tube 02/18/19 Unknown Rx Oint] ED Physical Exam - General Limitations: No Limitations General appearance: alert, in no apparent distress - Head Head exam: Present: atraumatic, normocephalic - Eye Eye exam: Present: normal appearance - ENT ENT exam: Present: mucous membranes moist - Neck Neck exam: Present: normal inspection - Respiratory Respiratory exam: Present: normal lung sounds bilaterally. Absent: respiratory distress - Cardiovascular Cardiovascular Exam: Present: regular rate, normal rhythm. Absent: systolic murmur, diastolic murmur, rubs, gallop - GI/Abdominal GI/Abdominal exam: Present: soft, normal bowel sounds - Extremities Exam Extremities exam: Present: normal inspection - Back Exam Back exam: Present: normal inspection - Neurological Exam Neurological exam: Present: alert, oriented X3 - Psychiatric Psychiatric exam: Present: normal affect, normal mood - Skin Skin exam: Present: warm, dry, intact, normal color. Absent: rash ED Course Vital Signs 04/01/19 13:33 Temperature 98.2 F Pulse Rate 98 H Respiratory 20 Rate Blood Pressure 166/99 O2 Sat by Pulse 100 Oximetry ED Medical Decision Making - Lab Data Result diagrams: 04/01/19 14:21 04/01/19 14:21 Critical care attestation.: If time is entered above; I have spent that time in minutes in the direct care of this critically ill patient, excluding procedure time. ED Disposition Clinical Impression: Acute hypokalemia, Diarrhea Disposition: DC-01 TO HOME OR SELFCARE Is pt being admited?: No Does the pt Need Aspirin: No Condition: Stable Instructions: Hypokalemia (ED), Acute Diarrhea (ED), Loperamide (By mouth) Additional Instructions: Please increase her potassium rich foods such as apricots, bananas, orange juice. You can take [id number] Imodium AD for diarrhea. Follow up with her primary care provider in the next 3-5 days if symptoms persist Referrals: Your ,Primary Care provider [Other] - 3-5 Days
[2019-04-01 17:14] VITALS: BP 157/110
== END 2019-04-01 17:14 | disposition home or self-care (01) ==
LOC: ED 13:16
DX: E87.6 Hypokalemia (principal); R19.7 Diarrhea, unspecified; I10 Essential (primary) hypertension; J45.909 Unspecified asthma, uncomplicated; Z79.899 Other long term (current) drug therapy
CPT/HCPCS: 36415; 80048; 84703; 85025

== ENCOUNTER 2019-04-09 14:20 | Outpatient (CLI) | payer MEDICAID ==
--- NOTE | 2019-04-09 16:13 | Mammography Report ---
LEFT DIGITAL DIAGNOSTIC MAMMOGRAM CLINICAL: For clip placement after ultrasound-guided needle biopsy at 2 sites. COMPARISON: 03/27/2019 FINDINGS: 2 biopsy clips are identified at 9:00 and at 4:00. The clip at 9:00 is within a circumscrib ed mass. The clip at 4:00 correlates with the subareolar biopsy and it appears that the clip has migr ated laterally away from the subareolar area. IMPRESSION: Concordant clip deployment at 9:00 but discordant clip deployment at 4:00. Signer Name: Huang Maldonado MD Signed: 04/09/2019 4:08 PM Workstation Name: [id number]
--- NOTE | 2019-04-10 09:58 | Ultrasound Report ---
ULTRASOUND-GUIDED VACUUM-ASSISTED NEEDLE CORE BIOPSY LEFT BREAST WITH CLIP PLACEMENT ULTRASOUND-GUIDED NEEDLE CORE BIOPSY LEFT BREAST WITH CLIP PLACEMENT CLINICAL: Mass at 8:00 6 cm from the nipple and an intraductal retroareolar mass at 9:00. FINDINGS: The procedure was explained to the patient and informed consent was obtained. Ultrasound demonstrated the previously identified lesions. I marked the breast with a felt tip marker and a timeout was called. The skin was prepped with Chloro -Prep and anesthetized with 1% lidocaine. Ultrasound guided needle core biopsy was performed through a tiny dermatotomy at 8:00 using ultrasoun d guidance, 2% lidocaine with epinephrine for deep anesthesia and a 14-gauge Achieve biopsy device. 5 samples were obtained and cores were placed in formalin. A clip was deployed within the mass. Vacuum-assisted needle core biopsy was performed through a tiny dermatotomy at the lateral edge of th e areola using ultrasound guidance, 2% lidocaine with epinephrine for deep anesthesia and a 13-gauge Mammotome Elite biopsy device. Multiple cores were obtained and placed in formalin. A hydromark clip was deployed within the lesion. The patient tolerated the procedure well and there were no apparent complications. Hemostasis was ach ieved with minimal effort and sterile dressings were applied. A post procedure mammogram demonstrated concordant clip deployment at 8:00 to 9:00 but discordant cli p placement for the retroareolar lesion. This clip is medial to and below the nipple at 4:00 which is consistent with migration of the clip laterally with removal of the clip deploying device. She left the department in good condition and was given instructions for wound care and follow-up. IMPRESSION: Uncomplicated ultrasound guided needle core biopsy with clip placement at 2 sites left br east. Signer Name: Huang Maldonado MD Signed: 04/10/2019 9:53 AM Workstation Name: [id number]
== END 2019-04-09 14:21 | disposition home or self-care (01) ==
LOC: SPVWC 14:20
PROVIDERS: ATTEND Surgery
DX: N63.24 Unspecified lump in the left breast, lower inner quadrant (principal); N63.22 Unspecified lump in the left breast, upper inner quadrant; D24.2 Benign neoplasm of left breast; I10 Essential (primary) hypertension; J45.909 Unspecified asthma, uncomplicated; Z79.899 Other long term (current) drug therapy; Z91.81 History of falling; Z98.890 Other specified postprocedural states; Z80.3 Family history of malignant neoplasm of breast; Z82.49 Family history of ischemic heart disease and other diseases of the circulatory system
CPT/HCPCS: 88305

== ENCOUNTER 2019-04-11 14:07 | Outpatient (CLI) | payer MEDICAID ==
--- NOTE | 2019-04-11 16:15 | Ultrasound Report ---
ULTRASOUND-GUIDED NEEDLE CORE BIOPSY RIGHT BREAST WITH CLIP PLACEMENT CLINICAL: Right breast mass at 9:00 2 cm from the nipple. FINDINGS: The procedure was explained to the patient and informed consent was obtained. Ultrasound demonstrated the previously identified mass. I marked the breast with a felt tip marker and a timeout was called. The skin was prepped with Chloro -Prep and anesthetized with 1% lidocaine. Needle core biopsy was performed through small dermatotomy using ultrasound guidance, 2% lidocaine wi th epinephrine for deep anesthesia and a 14-gauge Achieve biopsy device. 4 cores were obtained and pl aced in formalin. A clip was deployed within the mass. The patient tolerated the procedure well and there were no apparent complications. Hemostasis was ach ieved with minimal effort and a sterile dressing was applied. She left the department in good condition and was given instructions for wound care and follow-up. IMPRESSION: Uncomplicated ultrasound guided needle core biopsy with clip placement right breast. Signer Name: Huang Maldonado MD Signed: 04/11/2019 4:11 PM Workstation Name: [id number]
== END 2019-04-11 14:08 | disposition home or self-care (01) ==
LOC: SPVWC 14:07
PROVIDERS: ATTEND Surgery
DX: N63.11 Unspecified lump in the right breast, upper outer quadrant (principal); I10 Essential (primary) hypertension; J45.909 Unspecified asthma, uncomplicated; Z98.890 Other specified postprocedural states; Z79.899 Other long term (current) drug therapy; Z91.81 History of falling; Z80.3 Family history of malignant neoplasm of breast; Z82.49 Family history of ischemic heart disease and other diseases of the circulatory system
CPT/HCPCS: 88305; 88341; 88342

== ENCOUNTER 2020-06-02 15:24 | Outpatient (CLI) | payer MEDICAID ==
--- NOTE | 2020-06-02 16:57 | Mammography Report ---
BILATERAL DIGITAL DIAGNOSTIC MAMMOGRAM WITH CAD CONVENTIONAL, 06/02/2020 BILATERAL LIMITED BREAST ULTRASOUND CLINICAL INFORMATION / INDICATION: Bilateral breast masses. TECHNIQUE: Digital bilateral mammographic imaging was performed. Limited ultrasound was performed. Th is examination was interpreted with the benefit of Computer-Aided Detection (CAD) analysis. COMPARISON: Bilateral mammography 03/27/19 and bilateral breast ultrasound 11/05/2019 and 03/27/2019. FINDINGS: Breast Density: The breasts are extremely dense, which lowers the sensitivity of mammography. MAMMOGRAPHIC FINDINGS: No dominant mass, suspicious calcifications, or architectural distortion in ei ther breast. Benign-appearing nodularity in both breasts is again identified. The nodule in the right subareolar region and the nodule in the left breast inferomedially both contain new biopsy clips. As ymmetric tissue in both axillary regions is stable. No new abnormality is seen. ULTRASOUND FINDINGS: Targeted ultrasound evaluation was performed of the area of interest. There ar e multiple similar-appearing hypoechoic solid masses scattered throughout each breast. RIGHT: The largest solid nodule in the right breast is at the 9:00 position 3 cm from the nipple and measures 2.5 cm. This nodule contains a biopsy clip. There are additional smaller solid nodules at th e 4:00 position 2 cm from the nipple measuring 2.3 cm, at the 8:00 position 6 cm from the nipple nils uring 1.6 cm, at the 4:00 position 3 cm from the nipple measuring 1 cm and 1.6 cm, and at the 5:00 po sition measuring 7.2 mm. LEFT: The largest solid nodule in the left breast is located the 8:00 position 6 cm from the nipple a nd measures 2.7 cm. The nodule contains a biopsy clip. There is a 7.6 mm solid nodule at the 1:00 pos ition 3 cm from the nipple, a benign lymph node at the 1:30 position 4 cm from the nipple measuring 3 .9 mm short axis and a 6.1 mm solid nodule at the 4:00 position 6 cm from the nipple. There is ductal ectasia in the subareolar region. There is a 5.6 mm ovoid solid nodule in one of the dilated ducts w ithout internal blood flow on Doppler exam. The nodule has not changed significantly since the ultras ound on 03/27/19. IMPRESSION: Benign-appearing nodularity bilaterally. No mammographic or sonographic evidence of malig jayda. Follow up recommendation: Unless otherwise clinically indicated, recommend patient return to routine screening mammography at age 42. BI-RADS Category 2: Benign. A "normal" or negative report should not discourage follow up or biopsy of a clinically significant f inding. A written summary of these findings will be mailed to the patient. The patient will be entered into a mammography reporting system which will generate a reminder letter for the patient's next appointmen t at the appropriate interval. According to the [employer], yearly mammograms are recommended starting at age 40 and continuing as long as a woman is in good health. Breast MRI is recommended for women with an leighann roximately 20-25% or greater lifetime risk of breast cancer, including women with a strong family his tory of breast or ovarian cancer and women who have been treated for Hodgkin's disease. Signer Name: Fermín Pfeiffer MD Signed: 06/02/2020 4:52 PM Workstation Name: [id number]
== END 2020-06-02 15:25 | disposition home or self-care (01) ==
LOC: SPVWC 15:24
PROVIDERS: ATTEND Surgery
DX: N63.14 Unspecified lump in the right breast, lower inner quadrant (principal); N63.24 Unspecified lump in the left breast, lower inner quadrant; N63.11 Unspecified lump in the right breast, upper outer quadrant; N60.21 Fibroadenosis of right breast; N60.22 Fibroadenosis of left breast
CPT/HCPCS: 77066